=== PATIENT | male | born 1930 | race Caucasian/White ===

== ENCOUNTER 2016-11-26 14:45 | Inpatient (IN) ==
[2016-11-26] MEDS: NS 1,000 ML IV SCH ×2 (15:00→21:59)
[2016-11-26] MEDS ORDERED: PHYTONADIONE 5 MG/2.5 ML ORAL LIQUID PO ONE (15:57)
--- NOTE | 2016-11-26 16:06 | XRay Report ---
Indication: hypoxia PROCEDURE: XR chest 1V: Encounter: Initial Comparison: CT chest dated November 12, 2010 Findings: There is a nasogastric tube in place. I cannot definitely localize the tip on this exposure. Lungs are mildly hypoinflated. No pneumothorax or definite effusion. Heart size and mediastinal contours are stable. Prior CABG. Pulmonary vascularity appears prominent. Bilateral shoulder replacements. Impression: 1. I cannot localize the tip of the nasogastric tube on this exam. 2. Hypoinflation and mild pulmonary edema. .
[2016-11-26] MEDS ORDERED: PHYTONADIONE 10 MG/ML SQ ONE (16:08)
--- NOTE | 2016-11-26 16:14 | History & Physical Report ---
<Joy Mcdaniel V - Last Filed: 11/26/16 15:58> History of Present Illness Date: 11/26/16 Chief complaint: GI Bleeding HPI: Chester is a pleasant 86yr old male with acute GI Bleeding. He was seen last evening in [facility]'s ER and was thought to be dehydrated. His Hgb was 17 at that time and he was discharged home. This morning he got up use the restroom noted to have "diarrhea". He felt lightheaded and weak and ambulated outside in attempt to go to his car to present to the doctor, however, he "slumped down and fell ". This was witnessed by his neighbor, and he asked his neighbor to call EMS for transportation to the emergency room. He was evaluated again acutely at [facility] emergency room this morning. Laboratory studies were repeated. At this time, hemoglobin was found to be down at 14.4 with a white count of 25.7, hematocrit 42.4, platelet count 272, 81 segs with 6% bandemia. INR at that time his 2.88 as patient is chronically on warfarin. Needing these in 1.6, to prone and was negative, lipase 81, amylase 36. It was 3 panel is reviewed. Sodium is 138, potassium 4.3, BUN 44, creatinine 1.4. Sedimentation rate was found to be 7. Twelve lead EKG was obtained showing sinus rhythm with PVCs without other acute changes. A CT scan of the abdomen was obtained given his leukocytosis with diarrhea. He was found to have a distended abdomen with debris/food raising concern for gastric outlet obstruction or gastroparesis. He is also noted to have diverticulosis of the colon. An NG tube tube was placed to LIS. Patient was then assisted up to use the bathroom at which time he had a maroon stool. Given the concern for acute GI bleeding, accompanied with his chronic comorbidities and chronic anticoagulation, [facility] Hospitalists services were contacted and accepted patient for direct admission to the ICU as an inpatient under the care of Dr. Noble. It is expected that his stay will be greater than 2 overnights. He shouldn't on arrival to [facility]. He has ongoing drainage from NG tube that is melena in color. He also has a melena stool during examination. He does complain of feeling somewhat short of breath. He denies having any pain in his chest or stomach. Reports he has had loose stools diarrhea and has soreness to his rectum. Patient remembers the event this morning in which he "fell, stumbled". He denies hitting his head or having loss of consciousness. Did discuss events records and he does verbalize. He wishes to be a full code Review of Systems Comprehensive ROS: completed and no additional positive findings except those as stated - Constitutional Constitutional: Present: fatigue, weakness - Respiratory Respiratory: Present: dyspnea - Gastrointestinal Gastrointestinal: Present: diarrhea, melena PFSH Past medical history History of colon cancer, prostate cancer and liver cancer Coronary artery disease with SD in 1997 History pulmonary emboli, chronic anticoagulation- started in 2011 GERD with esophageal stricture Type II diabetes Hypertension Hypothyroidism BPH Surgical History: Transverse partial colectomy-2008 (Dr. Ortega). EGD with dilatation-2010 (Dr. Ortega ). Cholecystectomy-Dr. Del Castillo. Quadruple bypass- 1994. TURP- Dr Michael. Back surgery, Dr. Frank. Left shoulder replacement- 2008 (Dr. Garcia). Right shoulder replacement-2010 (Dr. Garcia). Appendectomy- 1962 Family History: Mother with history of malignant brain tumor Father history of SD at a young age Multiple siblings with coronary artery disease. He has 2 children, 1 child in his 40s from leukemia - Social History Smoking status: Never smoker Substance use type: does not use Alcohol intake frequency: does not drink Housing: house Current occupational status: retired Current residence: Apartment/Private Home Social history: Resides independently at home in [place], [place]. Primary care provider- Dr. Esequiel Calloway Engineering Geologist Dr. Jeffries Medications Home Medications Medication Instructions Recorded Confirmed Type Levothyroxine Sodium [Synthroid] 137 mcg PO DAILY #0 08/20/09 History Lisinopril 20 mg PO #0 08/20/09 History Omeprazole 20 mg PO DAILY #0 08/20/09 History Sucralfate 1 g PO QID #0 07/29/10 History hydroCHLOROthiazide 25 mg PO DAILY #0 07/30/10 History [Hydrochlorothiazide] Allergies Allergy/AdvReac Type Severity Reaction Status Date / Time No Known Allergies Allergy Mild Verified 06/19/08 15:48 Exam Telemetry Rhythm: Sinus Rhythm Telemetry Ectopy: Occasional PVC Height/Weight/BMI: Weight 84.1 kg - Constitutional Present: no acute distress, well nourished, well developed - Routine HEENT Exam Head: Present: normocephalic, atraumatic Eye: Present: EOMI, PERRL ENT: Present: mucous membranes moist, dentition normal - Routine Respiratory Exam Present: CTA bilaterally. Absent: wheezes - Routine Cardiovascular Exam Present: RRR, S1, S2, no murmur. Absent: murmur - Routine Abdominal Exam Present: soft, non distended, non tender. Absent: normoactive bowel sounds ( hypoactive bowel sounds), tenderness - Routine Rectal Exam Patient deferred: visual exam Visual: Present: black stool, bloody stool Digital: Present: blood Comments: Erythema and external soreness at rectal opening - Routine Extremities Exam Present: no edema, pallor - Routine Back/Spine/Pelvis Exam Back/Spine: Present: full ROM - Routine Skin Exam Present: intact, dry, warm - Routine Neurological Exam Present: alert, oriented X3, moving all extremities CN- 3-12 intact - Routine Psychiatric Exam Present: normal affect, normal thought process Results - Labs CBC & Chem 7: 11/26/16 15:35 Assessment and Plan (1) Acute GI bleeding Current visit: Yes Status: Acute (2) Chronic anticoagulation Current visit: Yes Status: Acute DVT Prophylaxis: SCD's GI Prophylaxis: Protonix Resuscitation Status: Full Code Assessment and Plan: Impression Acute GI bleed Chronic anticoagulation with elevated INR GERD GERD with esophageal stricture Type II diabetes Hypertension Hypothyroidism BPH History of colon cancer with metastases, prostate cancer Plan Admit patient. Inpatient status under the care of Dr. Noble to the ICU for acute GI bleed On admission obtain CBC, BMP, INR, PTT, type and screen. INR this morning was 2.5, INR on admission is 2.76. Will give Vitamin K SQ 5 mg now. Given active melena will initiate transfusion of FFP x [address]. [address] Noble Hgb last evening was 17. This morning was 14.[address] [facility]. On admission Hgb has decreased to 12.2. Type and screen, ordered. May need to consider blood transfusion. Will recheck HGB at 2200 and will continue serial H/H every 6 hours. Placed on Protonix Drip for GI protection Consultation placed to Dr. Holland for further surgical evaluation and recommendations. Monitor patient on cardiac telemetry for dysrhythmias NS at 100 ml/hr for ongoing hydration. Patient is currently NPO. Monitor Accu checks routinely given DM Will need to review home medications once reconciled. SCDs to bilateral lower ext for DVT prophylaxis Patient does request to be a full code and this order is written. Plan of care and orderes discussed with Dr Holland and Dr Noble Hospital Course Summary Disclaimer: The visit summary below is not to be considered part of the above Progress Note. Hospital Course: 11/26/16 - Initial admission Impression Acute GI bleed Chronic anticoagulation with elevated INR GERD GERD with esophageal stricture Type II diabetes Hypertension Hypothyroidism BPH History of colon cancer with metastases, prostate cancer Plan Admit patient. Inpatient status under the care of Dr. Noble to the ICU for acute GI bleed On admission obtain CBC, BMP, INR, PTT, type and screen. INR this morning was 2.5, INR on admission is 2.76. Will give Vitamin K SQ 5 mg now. Given active melena will initiate transfusion of FFP x [address] Noble Hgb last evening was 17. This morning was 14.[address] [facility]. On admission Hgb has decreased to 12.2. Type and screen, ordered. May need to consider blood transfusion. Will recheck HGB at 2200 and will continue serial H/H every 6 hours. Placed on Protonix Drip for GI protection Consultation placed to Dr. Holland for further surgical evaluation and recommendations. Monitor patient on cardiac telemetry for dysrhythmias NS at 100 ml/hr for ongoing hydration. Patient is currently NPO. Monitor Accu checks routinely given DM Will need to review home medications once reconciled. SCDs to bilateral lower ext for DVT prophylaxis Patient does request to be a full code and this order is written. Plan of care and orderes discussed with Dr Holland and Dr Noble <Marianna Nolbe - Last Filed: 11/26/16 18:27> History of Present Illness Date: 11/26/16 Exam Height/Weight/BMI: Weight 84.1 kg Results - Labs CBC & Chem 7: 11/26/16 15:35 11/26/16 15:35 Assessment and Plan (1) Acute GI bleeding Current visit: Yes Status: Acute (2) Chronic anticoagulation Current visit: Yes Status: Acute Assessment and Plan: I have independently evaluated and examined this patient. I reviewed the chart, the patient's history, and the CRINKLING MACHINE OPERATOR/PA's documented findings as above. We discussed and formulated the assessment and plan as above with additions as below: Mr. Marcelino presented to the emergency room at an outside hospital yesterday after several falls. In retrospect he reports that he had a black stool yesterday morning. He received IV fluids and was discharged home. This morning he had blurred vision, dizziness, difficulty walking, and a fall as previously noted. He additionally had one episode of emesis at home but did not recognize hematemesis. He subsequently presented to the emergency room were ultimately GI bleed was identified and he transferred to [facility]. The patient denies any symptoms suggestive of dyspepsia or reflux although EGD in December 2010 and prior EGDs demonstrated severe GERD, hiatal hernia and distal esophageal stricture requiring dilatation. Patient's colon cancer was identified in 2008 with subsequent recurrence in the right liver requiring hepatic resection in 2009 and omental resection in 2010 positive for poorly differentiated adenocarcinoma consistent with colon primary. A Port-A-Cath was placed for chemotherapy although patient reports that he never received chemotherapy. Addition to surgeries previously noted the patient has had partial right hepatic lobectomy in 2009 and an omental resection /abdominal wall resection in 2010 for recurrent colon cancer and Port-A-Cath placement in 2010; he's had multiple EGDs with esophageal dilatations. Please note home medications are pending-those listed above are from several years ago. On examination the patient was alert and cooperative. He is hard of hearing. sBP 110 Respirations are nonlabored with good airflow and clear breath sounds. Cardiac rhythm is regular. Abdomen is soft, nondistended, bowel sounds are diminished; there is minor tenderness to palpation in the lateral right mid abdomen without guarding. Labs as previously noted-INR 2.88 prior to transfer. Hemoglobin has dropped from 17.7 yesterday to most recent value of 12.2 with multiple stool since arrival. Protonix is been initiated, warfarin is being reversed with vitamin K and FFP. Will likely require diuresis in conjunction with FFP due to volume. Dr. Holland consulted and case discussed with him. Given uncertainty of past treatment for metastatic colon cancer will reassess CEA with morning labs. Chest x-ray on admission with minor increased vascular markings/early pulmonary edema Patient critically ill with ongoing active GI bleed; at high risk for complications. 35 minutes spent at the bedside with patient/family and reviewing data on the unit. Additional time spent off unit inpatient care. The patient's [id number]-Maria Del Carmen Reyes, phone #[phone]-is his DPOA. Hospital Course Summary Disclaimer: The visit summary below is not to be considered part of the above Progress Note.
[2016-11-26] MEDS: PANTOPRAZOLE IV 80 MG in NS 250ml 250 ML IV SCH (17:52)
[2016-11-26] MEDS ORDERED: FUROSEMIDE 20 MG/2 ML INJECTION IVP ONE (20:00)
[2016-11-26 21:48] VITALS: BMI 29.0
[2016-11-26] MEDS ORDERED: NS FLUSH BAG 500ml IV PRN (21:48)
[2016-11-26] MEDS: NS FLUSH BAG 500ml IV PRN (23:43)
[2016-11-27] MEDS: NS FLUSH BAG 500ml IV PRN ×2 (02:17→21:54)
[2016-11-27] MEDS: PANTOPRAZOLE IV 80 MG in NS 250ml 250 ML IV SCH (03:10)
[2016-11-27] MEDS ORDERED: BENZOCAINE 20% SPRAY 0.5 ML MM ONE (08:35)
[2016-11-27] MEDS ORDERED: LIDOCAINE VISCOUS 2% ORAL LIQUID 15ml PO ONE (08:40)
--- NOTE | 2016-11-27 09:11 | XRay Report ---
Indication: CHF/volume overload PROCEDURE: XR chest 1V: Encounter: Initial Comparison: November 26, 2016 Findings: Nasogastric tube is again seen and only partially visualized. Poststernotomy changes and prior CABG. Bilateral shoulder replacements. Lungs are mildly hypoinflated but grossly clear. No pneumothorax or pleural effusion. Heart size and mediastinal contours are stable. Pulmonary vascularity is slightly less congested. Impression: Improving pulmonary vascular congestion. .
--- NOTE | 2016-11-27 09:18 | Consultation ---
DATE OF CONSULTATION 11/26/2016 CONSULTING PHYSICIAN Anatoly Holland MD REQUESTING PHYSICIAN Dr. Noble REASON FOR CONSULTATION GI bleed. IMPRESSION 1. Acute GI bleed - likely upper GI bleed based on NG tube output and melanotic stools. 2. Chronic anticoagulation with Coumadin. 3. Personal history of pulmonary embolism. 4. Personal history of metastatic colon cancer. 5. Personal history of Moraes's esophagus with distal esophageal strictures status post multiple dilatations. 6. Gastroesophageal reflux disease. PLAN 1. I agree with following serial hemoglobins. 2. I do agree with reversal of his Coumadin given his drop in hemoglobin so far. 3. If he needs urgent intervention due to uncontrolled bleeding or hemodynamic instability, then I think that coiling with interventional radiology would be advantageous. 4. I am hopeful that as his INR is reversed his bleeding will stop and it will allow for more controlled endoscopy. Colonoscopy will have to be considered given his history of colon cancer. 5. I will follow along with you with regards to his GI bleeding. HISTORY OF PRESENT ILLNESS Geovany is an 86-year-old male with a history of metastatic transverse colon cancer as well as a history of pulmonary embolism. He is on chronic anticoagulation for his history of a PE. He was seen last evening in the emergency department in [facility]. His hemoglobin was 17. He was thought to be dehydrated and was dismissed home. This morning he had felt lightheaded and weak when he was walking outside to go to his car and head to his physician's office. The patient had a witnessed fall and so he was taken back to the emergency department by EMS. He had a hemoglobin that had decreased to 14.4. His INR was 2.88. He did reportedly have a CT scan of the abdomen. This had raised question of debris and food within the stomach concerning for gastric outlet obstruction or gastroparesis. He had had an NG tube placed. He did have a maroon stool. He was transferred to [facility] after given the choice of [facility] or [facility]. He continued to have dark NG output and began having multiple melanotic stools. The hospitalist consulted me and in the meantime have ordered vitamin K and FFP. He has been started on a Protonix drip. The patient denies any abdominal pain. He does have an extensive history of distal esophageal stricture requiring dilatations. Biopsies of his GE junction in 2010 had showed Moraes's esophagus. He is taking omeprazole and Carafate at home. PAST MEDICAL HISTORY 1. Metastatic colon cancer of the mid transverse colon - originally stage II when diagnosed in June of 2008. He developed metastases to the right liver status post laparoscopic resection on 06/22/2008 and a recurrence intraperitoneally to the omentum status post resection in August 2009. 2. Prostate cancer status post radiation therapy in 2001. 3. Coronary artery disease with myocardial infarction in 1997 status post CABG. 4. Pulmonary emboli - 2011. He was started on chronic anticoagulation at that point in time. 5. Gastroesophageal reflux disease. 6. Moraes's esophagus and distal esophageal stricture. 7. Hypertension. 8. Hypothyroidism. PAST SURGICAL HISTORY 1. Appendectomy - 1962. 2. Back surgery - [address] Frank. 3. CABG x 4 - 1994. 4. TURP by Dr. Michael. 5. Colonoscopy - 03/06/[address] Ortega. Colonoscopy was normal except for diverticulosis. 6. Cholecystectomy - 2005. 7. Colonoscopy - 06/20/[address] Ortega. Endoscopy revealed an obstructing lesion at the hepatic flexure. 8. Exploratory laparotomy with transverse colectomy - 06/22/[address] Ortega. 9. Colonoscopy - 07/06/[address] Ortega. Endoscopy revealed a stricture of the transverse colon anastomosis that was dilated. There was also extensive sigmoid diverticulosis. 10. Laparoscopic resection of liver metastases from the right lobe - [address] Ortega. 11. EGD with dilatation - 05/20/[address] Galdamez. 12. EGD with dilatation and esophageal biopsies - 06/06/[address] Galdamez. Pathology revealed Moraes's esophagus of the specimen. 13. EGD with dilatation - 07/01/[address] Ortega. 14. EGD with dilatation - 07/30/[address] Ortega. 15. Exploratory laparotomy with removal of colon cancer metastases to the omentum and excision of abdominal wall which was benign - 12/02/[address] Ortega. 16. Left subclavian Port-A-Cath placement - 12/02/[address] Ortega. 17. Right shoulder replacement - [address] Garcia. 18. Left shoulder replacement - [address] Garcia. 19. EGD with dilatation - 12/16/[address] Ortega. Endoscopy revealed extensive inflammation of the distal esophagus from 20-30 cm. 20. 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 Ortega. 21. Right ulnar nerve transposition. ALLERGIES No known drug allergies. MEDICATIONS The patient's home medications were reviewed. FAMILY HISTORY Mother - malignant brain tumor. Father - myocardial infarction at a young age. Multiple siblings - coronary artery disease. Sister - breast cancer. Two children with one son who of leukemia in his 40s. SOCIAL HISTORY The patient is a never smoker. He does not drink. He lives independently in [facility]. His primary care physician is Dr. Esequiel Calloway. REVIEW OF SYSTEMS 10-point review of systems was negative except for history of present illness and the following: GENERAL: He reports fatigue, sweats, and chills. HEENT: He is hard of hearing and uses hearing aids. NEUROLOGIC: He has numbness of the right hand and intermittent numbness of the left hand. HEMATOLOGIC: He is on Coumadin and has a history of PE. MUSCULOSKELETAL: He reports history of back pain and leg pain but is doing better with recent cortisone injections. GASTROINTESTINAL: He has had diarrhea and melanotic stools. PHYSICAL EXAMINATION VITAL SIGNS: Temperature 97.9. Pulse 83. Blood pressure 101/59. Respiratory rate 16. Oxygen saturation 100% on 3 liters nasal cannula. GENERAL: The patient is awake and alert. He is lying in bed in the intensive care unit in no acute distress. HEENT: Sclerae clear. Extraocular muscles intact. NECK: Supple with a midline trachea. No lymphadenopathy or thyromegaly are noted. HEART: Regular rate and rhythm. LUNGS: Clear to auscultation bilaterally. ABDOMEN: Soft, nontender, nondistended. No masses, fluid, organomegaly, guarding or rebound are noted. His NG output has dark maroon output. EXTREMITIES: No clubbing, cyanosis or edema. NEURO: Cranial nerves II-XII are grossly intact. PSYCHIATRIC: Normal mood and affect. LABORATORY DATA Hemoglobin 12.2, white blood cell count 17.8, BUN 52, creatinine 1.1, INR 2.76 at [facility]. PATIENT EDUCATION I did explain the clinical situation to Geovany and discussed the possible need for future endoscopy versus transfer to interventional radiology in [facility], all depending on his clinical status and INR trend along with hemoglobin trend. He was comfortable with the plan and desired to stay in [facility] it at all possible. MTDD
--- NOTE | 2016-11-27 10:19 | Progress Note ---
Subjective: Patient c/o dry mouth and wants something to drink this am. Multiple maroon stools overnight (about 8) and 3 so far this am-last stool small compared to initially 2 large maroon stools. Bloody NG drainage ongoing but relatively small volume relative to stool volume. Pt denies indigestion, heartburn, abd pain, N/V overnight. Denies dyspnea or CP. No generalized pain or dizziness. Objective Vital signs: Temperature 97.9 F 11/27/16 07:15 Pulse Rate 84 11/27/16 09:30 Respiratory Rate 27 H 11/27/16 09:30 Blood Pressure 126/85 11/27/16 09:30 Pulse Oximetry 98 11/27/16 09:30 Oxygen Delivery Method Nasal Cannula Oxygen Flow Rate 1 NAD, Ox3, some repetition and mild confusion, pleasant conjunctiva clear, PER, sclera anicteric, NG present resp non-labored, good airflow, breath sounds clear anteriorly/lat. RRR, S1S2 Abd soft, non-tender, non-distended, BS not noted Ext without edema Sensation intact x 4 ext, desktop publishing operator = 4/5, DF/PF intact Height/Weight/BMI: Height 1.7 m Weight 84.5 kg Body Mass Index 29.0 Results - Labs CBC & Chem 7: 11/27/16 13:10 11/27/16 03:49 Labs: Hemoglobin since arrival: 12.2-9.3-8.1-7.3 INR 1.69 this morning, repeated 1.77 at 1310 Assessment and Plan (1) Acute GI bleeding Current visit: Yes Status: Acute (2) Acute blood loss anemia Current visit: Yes Status: Acute DVT Prophylaxis: SCD's GI Prophylaxis: Protonix Resuscitation Status: Full Code Assessment and Plan: Impression: Acute upper GI bleed Acute blood loss anemia Coagulopathy due to warfarin GERD with hx esophageal stricture Type II diabetes Hypertension Hypothyroidism BPH History of colon cancer with metastases, prostate cancer Plan: Continued active GI bleed, BP down briefly last night. Hbg continues to drop, 1 unit overnight and 2nd unint PRBs being given currently. Additional blood being given this afternoon due to ongoing blood loss and dropping hemoglobin. Continue q6hr H/H; convert Protonix to 40 mg bid IV from gtt. INR remained modestly elevated this am after 10 mg Vit. K and 4 units FFP; being reassessed after current unit of blood completed. Additional vitamin K and FFP being given this afternoon. d/w Dr. Holland-EDG when INR permits, <1.5. BUN elevated, c/w GI bleed. CEA 1.0-hx metastatic colon ca. Blood sugars minimally elevated. Patient critically ill with ongoing active GI bleed; at high risk for complications. 40 minutes ([id number]; [id number]) spent at the bedside with patient/RN and reviewing data on the unit. Additional time spent off unit inpatient care and multiple phone calls with staff. The patient's txobpszo-gj-osk-Maria Del Carmen Reyes, phone #[phone]-is his DPOA. Sepsis Assessment - Evaluation Sepsis screening result: No Definite Risk Hospital Course Summary Disclaimer: The visit summary below is not to be considered part of the above Progress Note. Hospital Course: 11/26/16 Admit patient. Inpatient status under the care of Dr. Noble to the ICU for acute GI bleed On admission obtain CBC, BMP, INR, PTT, type and screen. INR this morning was 2.5, INR on admission is 2.76. Will give Vitamin K SQ 5 mg now. Given active melena will initiate transfusion of FFP x 4 units. Hgb last evening was 17. This morning was 14.4 at [facility]. On admission Hgb has decreased to 12.2. Type and screen, ordered. May need to consider blood transfusion. Will recheck HGB at 2200 and will continue serial H/H every 6 hours. Placed on Protonix Drip for GI protection Consultation placed to Dr. Holland for further surgical evaluation and recommendations. 11/27/16 16:10 Continued active GI bleed, BP down briefly last night. Hbg continues to drop, 1 unit overnight and 2nd unint PRBs being given currently. Additional blood being given this afternoon due to ongoing blood loss and dropping hemoglobin. Continue q6hr H/H; convert Protonix to 40 mg bid IV from gtt. INR remained modestly elevated this am after 10 mg Vit. K and 4 units FFP; being reassesed after current unit of blood completed. Additional vitamin K and FFP being given this afternoon. d/w Dr. Holland-EDG when INR permits, <1.5. BUN elevated, c/w GI bleed. CEA 1.0-hx metastatic colon ca.
[2016-11-27] MEDS: PANTOPRAZOLE 40 MG INJECTION IVP SCH ×2 (10:25→21:56)
[2016-11-27] MEDS ORDERED: NS FLUSH BAG 500ml IV PRN ×3 (13:34→13:40)
[2016-11-27] MEDS ORDERED: PHYTONADIONE 10 MG/ML SQ ONE (13:41)
--- NOTE | 2016-11-27 17:59 | Anesthesia Preoperative Report ---
Anesthesia Preoperative Record - Date and Time Date: 11/27/16 Preoperative Diagnosis: GI Bleed Proposed Procedure: EGD NPO Since Date: 11/27/16 NPO Since Time: 00:00 Allergies/Adverse Reactions: Allergies Allergy/AdvReac Type Severity Reaction Status Date / Time No Known Allergies Allergy Mild Verified 06/19/08 15:48 - Vital Signs Vital Signs: Temperature 97.9 F 11/27/16 15:00 Pulse Rate 91 11/27/16 16:00 Respiratory Rate 19 11/27/16 15:15 Blood Pressure 126/60 11/27/16 15:15 Pulse Oximetry 100 11/27/16 15:15 Oxygen Delivery Method Nasal Cannula Oxygen Flow Rate 1 Height and Weight: Height 5 ft 7 in Weight 84.5 kg Body Mass Index 29.0 - Medications Inpatient Medications: Current Medications Sodium Chloride (Normal Saline) 1,000 mls @ 50 mls/hr IV .Q20H [facility] Last Infusion: 11/27/16 11:00 Dose: 50 mls/hr Pantoprazole Sodium (Protonix Iv) 40 mg IVP BID [facility] Last Admin: 11/27/16 10:25 Dose: Not Given Sodium Chloride (Normal Saline) 500 ml IV PRN PRN Last Admin: 11/27/16 02:17 Dose: 500 ml Sodium Chloride (Normal Saline) 500 ml IV PRN PRN Sodium Chloride (Normal Saline) 500 ml IV PRN PRN Sodium Chloride (Normal Saline) 500 ml IV PRN PRN Sodium Chloride (Normal Saline) 500 ml IV PRN PRN Home Medications: Home Medications Medication Instructions Recorded Confirmed Type Omeprazole 20 mg PO DAILY #0 08/20/09 11/27/16 History Aspirin [Aspirin EC] 81 mg PO DAILY 11/27/16 11/27/16 History Citalopram [Celexa] 1 tab PO DAILY 11/27/16 11/27/16 History Colchicine [Colcrys] 0.6 mg PO PRN PRN 11/27/16 11/27/16 History HydroCHLOROthiazide [Microzide] 1 cap PO WB 11/27/16 11/27/16 History Levothyroxine Tab [Synthroid] 112 mcg PO ACB 11/27/16 11/27/16 History Lisinopril [Prinivil] 5 mg PO DAILY 11/27/16 11/27/16 History Nitroglycerin [Nitrostat] 0.4 mg SL PRN PRN 11/27/16 11/27/16 History Potassium Chloride [Micro-K] 10 meq PO WB 11/27/16 11/27/16 History Tamsulosin [Flomax] 0.4 mg PO HS 11/27/16 11/27/16 History Warfarin Sodium [Coumadin] 5 mg PO DAILY 11/27/16 11/27/16 History Is Patient on Beta Ekta?: No - Medical History Respiratory: DENIES: Asthma, Bronchitis, Chronic Obstructive Pulmonary Disease (COPD), Dyspnea, Orthopnea, Pulmonary Embolism, Pneumonia, Upper Respiratory Infection, Pulmonary Edema, Sleep Apnea, Tuberculosis, Other Cardiovascular: Reports: Coronary Artery Disease (CABG), Hypertension Gastrointestional: Reports: Gastroesophageal Reflux Disease Neuro/Musculoskeletal: Denies: HX.MS.OSAR, Back Problems, Cerebrovascular Accident, Depression, Headaches, Loss of Consciousness, Muscle Weakness, Neuromuscular Disorder, Paralysis, Paresthesia, Syncope, Seizures, Other Renal/Endocrine: DENIES: Diabetes Mellitus Type 1, Diabetes Mellitus Type 2, Renal Failure, Dialysis, Thyroid Disease, Weight Loss, Weight Gain, Other Other History: Reports: Cancer (Prostate\) - Surgical History Cardiac Surgeries/Treatments: Reports: Coronary Artery Bypass Graft GI Surgery/Treatments: Reports: Appendectomy, Cholecystectomy, Colon Resection ( COLON CA), Other (GI BLEED) Musculoskeletal Surgery/Tx: Comment Only: Other (CORTISONE SHOT IN KNEES) - Social History Smoking Status: Former smoker Hx Chewing Tobacco Use: No Second Hand Exposure: No Substance Use Type: does not use Alcohol Intake Frequency: does not drink - Pertinent Findings Laboratory: CBC and BMP 11/27/16 15:51 11/27/16 03:49 BMP 11/27/16 03:49 Sodium 144 Potassium 4.4 Chloride 109 H Carbon Dioxide 25 BUN 67.0 H* Creatinine 1.2 Glucose 149 H Calcium 8.6 Liver Function 11/27/16 Range/Units 03:49 Total Bilirubin 0.40 (0.20-1.30) MG/DL AST 15 L (17-59) U/L ALT 29 (21-72) U/L Alkaline Phosphatase 34 L (38-126) U/L Albumin 2.9 L (3.5-5.0) G/DL EKG Rhythm: Normal Sinus Rhythm - Physical Exam Respiratory Exam: Present: lungs clear, bilateral breath sounds equal Cardiovascular Exam: Present: regular rate and rhythm, no murmur - Airway Assessment Mallampati Score: II TMD: 3 Fingerbreadths Neck Extension: good Teeth: upper dentures, lower dentures Overall Assessment: no airway concerns - ASA ASA Score: 3, E - Plan Anesthesia: MAC - Discussion Discussion: Discussed risks/options/alternatives of anesthesia and questions answered. Patient consents. Nursing pain assessment noted. Attestation Statement: Prior to the delivery of any anesthetic medication, I examined the patient, developed the plan, obtained the patient's consent and discussed the risk and benefits of the procedure with the patient/guardian. - Additional Information Seen by Anesthesia: Yes
[2016-11-27] MEDS ORDERED: KETAMINE 500 MG/10 ML INJECTION ONE (20:13)
[2016-11-27] MEDS ORDERED: BENZOCAINE 20% SPRAY 0.5 ML ONE (20:13)
[2016-11-27] MEDS ORDERED: LIDOCAINE VISCOUS 2% ORAL LIQUID 15ml ONE (20:13)
[2016-11-27] MEDS ORDERED: MIDAZOLAM 2mg/2ml INJECTION ONE (20:13)
[2016-11-27] MEDS ORDERED: ALFENTANIL 1000mcg/2ml INJECTION IVP ONE (20:13)
[2016-11-27] MEDS: SALINE FLUSH 10ml SYRINGE IV PRN (22:54)
[2016-11-27] MEDS: NS 1,000 ML IV SCH (22:54)
[2016-11-28] MEDS: HALOPERIDOL 5 MG/ML INJECTION IVP PRN ×2 (00:03→22:47)
[2016-11-28] MEDS ORDERED: ACETAMINOPHEN 650 MG SUPPOSITORY PR PRN (01:35)
[2016-11-28] MEDS: NS 1,000 ML IV SCH ×5 (05:32→20:58)
[2016-11-28] MEDS: PANTOPRAZOLE 40 MG INJECTION IVP SCH ×2 (09:44→20:01)
--- NOTE | 2016-11-28 09:53 | Progress Note ---
DATE OF VISIT 11/27/2016 REASON FOR VISIT Follow GI bleed. SUBJECTIVE Geovany still denies any abdominal pain. He is hoping he can eat. He has continued to have multiple maroon stools and bloody NG output. OBJECTIVE VITAL SIGNS: Afebrile with stable vitals on 1 liter nasal cannula. HEART: Regular rate and rhythm. LUNGS: Clear to auscultation bilaterally. ABDOMEN: Soft, nontender, nondistended. GENERAL: The patient is awake, alert, in no acute distress. LABORATORY DATA Most recent hemoglobin had dropped to 7.3, down from 8.1 this morning and 12.2 on admission. INR had decreased to 1.69 this morning but has increased to 1.77 this afternoon. IMPRESSION 1. Acute upper GI bleed. 2. Chronic anticoagulation with Coumadin - continued anticoagulation effect despite reversal with vitamin K and FFP. 3. Acute blood loss anemia secondary to GI bleed. 4. Personal history of pulmonary embolism. 5. Personal history of Moraes's esophagus and distal esophageal strictures. 6. Gastroesophageal reflux disease. PLAN 1. Geovany will continue to need reversal of his Coumadin to get his INR below 1.5 to allow a procedure without increased bleeding risk. 2. I have scheduled a slot for him tomorrow morning in the operating room since I doubt that reversal will be completed by the end of the day today. Hopefully, when his anticoagulation is reversed, his bleeding will decrease. 3. Continue to transfuse as necessary. 4. NPO at midnight. PATIENT EDUCATION The details, risks and benefits of EGD were discussed with the patient. The discussion included, but was not limited to, bleeding, perforation, increased risk of bleeding with instrumentation, possible thermal injury resulting in perforation, aspiration, and complications of anesthesia. He voiced understanding and did wish to proceed with EGD as soon as INR was reasonable. MTDD
--- NOTE | 2016-11-28 10:28 | Progress Note ---
Subjective: Mr. Marcelino complains of being thirsty and asks for something to drink. He had questions about whether the bleeding was controlled and endoscopy last night. Nursing reports confusion requiring administration of Haldol overnight and chills lasting about 30 minutes as the final blood transfusion was completed. The patient has had several additional dark maroon stools since endoscopy but stool volume appears to be decreasing per nursing report. Patient denied dyspnea , chest pain, palpitations, nausea, abdominal pain, or heartburn. He believes he was able to get some sleep overnight and anticipate we aware of chilling overnight. His voiding without difficulty. Objective Vital signs: Temperature 98.4 F 11/28/16 04:01 Pulse Rate 60 11/28/16 08:00 Respiratory Rate 29 H 11/28/16 06:16 Blood Pressure 119/74 11/28/16 06:16 Pulse Oximetry 96 11/28/16 06:16 Oxygen Delivery Method Nasal Cannula Oxygen Flow Rate 2 EXAM General-patient is awake and slightly confused, he perseverates slightly; voice is raspy HEENT-pupils are round and symmetric, conjunctiva clear, EOMI; oral membranes dry Lungs-respirations nonlabored, good airflow, breath sounds clear anteriorly Cardiac-regular rhythm, S1-S2; sinus rhythm on telemetry Abd-soft, nontender, nondistended, diminished bowel sounds Ext-without edema Neuro-MAEW, sensation intact 4 extremities Psych-briefly tearful, slightly confused - Rhythm: Normal Sinus Rhythm Height/Weight/BMI: Height 1.7 m Weight 84.3 kg Body Mass Index 29.0 Results - Labs CBC & Chem 7: 11/28/16 06:52 11/28/16 06:52 Labs: Hemoglobin 5.7 at 7 PM yesterday evening; differential this morning segs 71, bands 9, lymphocytes 11, monocytes 8, metamyelocyte 1 Accu-Cheks 180-219 past 24 hours Liver enzymes unremarkable, phosphorus 2.0 Assessment and Plan (1) Acute GI bleeding Current visit: Yes Status: Acute (2) Acute blood loss anemia Current visit: Yes Status: Acute DVT Prophylaxis: SCD's GI Prophylaxis: Protonix Resuscitation Status: Full Code Assessment and Plan: Impression: Acute upper GI bleed Acute blood loss anemia Coagulopathy due to warfarin GERD with hx esophageal stricture Type II diabetes Hypertension Hypothyroidism BPH History of colon cancer with metastases, prostate cancer Plan: Upper GI completed yesterday evening by Dr. Holland identifying active arterial bleed at the distal esophagus. Irregular lesion present associated with bleeding site and some tissue was obtained for pathology. Multiple sites treated with cauterization, epinephrine injection, and clipped to obtain hemostasis. Patient briefly developed narrow complex tachycardia following epinephrine injection requiring administration of esmolol for rate control. Sinus rhythm this morning, BP 119/74-167/71 overnight. Has had 6 units of packed red blood cells today, continue to monitor hemoglobin. Platelet count down following active bleed-monitor and reassess later this afternoon. Does not require intervention at present. Previously on warfarin due to history PE, reversed with 6 units FFP and 15 mg vitamin K. SCDs for DVT prophylaxis. BUN elevated, c/w GI bleed. CEA 1.0-hx metastatic colon ca; Dr. Holland has confirmed from office records that patient did not receive chemotherapy after second recurrence. Blood sugars minimally elevated, corrective scale insulin available. Patient critically ill with life-threatening GI bleed; at high risk for complications. 46 minutes ([id number]) spent at the bedside with patient/RN and reviewing data on the unit. Additional time spent off unit inpatient care and multiple phone calls with staff. Emotionally labile; will attempt to get out of bed today blood pressure permitting. The patient's djoahprf-[id number]-Maria Del Carmen Reyes, phone #[phone]-is his DPOA. Sepsis Assessment - Evaluation Sepsis screening result: No Definite Risk Hospital Course Summary Disclaimer: The visit summary below is not to be considered part of the above Progress Note. Hospital Course: 11/26/16 Admit patient. Inpatient status under the care of Dr. Noble to the ICU for acute GI bleed On admission obtain CBC, BMP, INR, PTT, type and screen. INR this morning was 2.5, INR on admission is 2.76. Will give Vitamin K SQ 5 mg now. Given active melena will initiate transfusion of FFP x 4 units. Hgb last evening was 17. This morning was 14.4 at [facility]. On admission Hgb has decreased to 12.2. Type and screen, ordered. May need to consider blood transfusion. Will recheck HGB at 2200 and will continue serial H/H every 6 hours. Placed on Protonix Drip for GI protection Consultation placed to Dr. Holland for further surgical evaluation and recommendations. 11/27/16 16:10 Continued active GI bleed, BP down briefly last night. Hbg continues to drop, 1 unit overnight and 2nd unint PRBs being given currently. Additional blood being given this afternoon due to ongoing blood loss and dropping hemoglobin. Continue q6hr H/H; convert Protonix to 40 mg bid IV from gtt. INR remained modestly elevated this am after 10 mg Vit. K and 4 units FFP; being reassesed after current unit of blood completed. Additional vitamin K and FFP being given this afternoon. d/w Dr. Holland-EDG when INR permits, <1.5. BUN elevated, c/w GI bleed. CEA 1.0-hx metastatic colon ca. 11/28/16 10:42 Upper GI completed yesterday evening by Dr. Holland identifying active arterial bleed at the distal esophagus. Irregular lesion present associated with bleeding site and some tissue was obtained for pathology. Multiple sites treated with cauterization, epinephrine injection, and clipped to obtain hemostasis. Patient briefly developed narrow complex tachycardia following epinephrine injection requiring administration of esmolol for rate control. Sinus rhythm this morning, BP 119/74-167/71 overnight. Has had 6 units of packed red blood cells today, continue to monitor hemoglobin.
--- NOTE | 2016-11-28 10:46 | Operative Note ---
DATE OF OPERATION 11/27/2016 SURGEON Anatoly Holland MD DYE BOX OPERATOR Gonzalo Palacios MD PREOPERATIVE DIAGNOSES 1. Acute GI bleed. 2. Gastroesophageal reflux disease. 3. Acute blood loss anemia. POSTOPERATIVE DIAGNOSES 1. Tear of the distal esophagus of uncertain etiology with active arterial hemorrhage. 2. Upper GI bleed secondary to esophageal hemorrhage. 3. Gastroesophageal reflux disease. 4. Acute blood loss anemia. PROCEDURE 1. Esophagogastroduodenoscopy with biopsy of distal esophagus. 2. Endoscopic epinephrine injection at the distal esophagus for control of hemorrhage. 3. Bipolar Gold Probe cauterization at the distal esophagus for control of hemorrhage. 6. Endoscopic clip placement at the distal esophagus x 3 for control of hemorrhage. ANESTHESIA MAC ASA CLASS 3E INDICATIONS The patient is an 86-year-old male who had been admitted for GI bleed. He had had an elevated INR due to his chronic anticoagulation with Coumadin. His Coumadin was reversed and he was being transfused due to dropping hemoglobin. This evening his INR was finally below 1.5 with ongoing FFP transfusion. Hemoglobin had dropped to the level of 5.8 and since his INR was only 1.29 it was felt that intervention may be successful in control of hemorrhage. FINDINGS There was what appeared to be a linear tear along the distal esophagus just proximal to the GE junction. There was no evidence of mass in the area or other significant findings but within the tear there was arterial hemorrhage. There was a large amount of old clot contained within the esophagus that was adherent to the NG tube. NG tube was removed. The stomach and duodenum were normal. Epinephrine injection slowed the hemorrhage as did bipolar cautery, but complete control of the hemorrhage was not achieved until endoscopic clips were placed over the area of the linear tear of the distal esophagus. DESCRIPTION OF PROCEDURE After informed consent was obtained the patient was given IV sedation in the intensive care unit by the anesthesia team. He had received topical anesthesia to the oropharynx. A bite block was inserted followed by an Olympus video gastroscope. The gastroscope was advanced down into the esophagus where a large amount of clot was noted. The NG tube was removed given the adherent clot since it was blocking visualization. The scope was advanced down to the distal esophagus and the hemorrhage was noted. The scope was advanced into the stomach and duodenum quickly. After reaching the second portion of the duodenum , the scope was slowly withdrawn to examine the mucosa circumferentially. The duodenum was normal including the duodenal bulb. The distal stomach was normal. The scope was retroflexed to examine the cardiac and fundic portions of the stomach. There was some pooled blood in the fundus but the remainder of the stomach was inspected. The scope was returned to a neutral position and was advanced into the distal esophagus. There was still some hemorrhage from the area, so 9 ml of 1:10,000 epinephrine were injected circumferentially. This did slow of the hemorrhage significantly to allow visualization of the linear tear. The patient did have some tachycardia and hypertension from this which was treated by the anesthesia team. The Gold Probe bipolar cautery tip was advanced through the scope and was placed on the areas of hemorrhage. Attempts were made to hold pressure and cauterize the bleeding; however, with respiratory motion, the ability to hold good pressure and maintain position of the cautery probe was difficult. Given the difficulty with control of hemorrhage, this option was abandoned and an endoscopic clip was advanced and used to control the distal tear where the most prominent arterial bleeding was noted. There was still concern for rebleeding, so the remainder of the tear was controlled with two additional clips. Dr. Palacios came in to assist with placement of the two more difficult to place proximal clips since they were in close proximity to the original clip. His assistance allowed for appropriate clip placement. A second clip placed did tunnel under the mucosa proximally and this was removed from the mucosa with a closed biopsy forceps to pull the mucosa off of the tip of the clip. The third clip was used to control hemorrhage from this location and it was also felt that this would potentially decrease blood flow in the area since it was just proximal to the area of the tear with arterial bleeding. When the third clip was successfully deployed, the area was watched and hemostasis was assured. The scope was not re-advanced to avoid disruption of the clips. It was withdrawn, examining the mucosa of the esophagus again circumferentially. After epinephrine injection and initial cauterization, there was some loose tissue over the top of the tear which was simply grasped with biopsy forceps and withdrawn at the end of the scope to keep the architecture intact. This tissue was sent to pathology. The patient remained in the CCU in his preprocedure state. RECOMMENDATIONS 1. Await pathology to determine if any etiology for his tear can be discovered with pathologic analysis. 2. Continue to monitor hemoglobin trend. 3. Transfuse another unit of packed red blood cells currently prior to his next hemoglobin check. 4. If he decompensates or has evidence of rebleeding with hematemesis, then I think he would need transfer to [facility] for angiogram or thoracic surgery for control of the bleeding from the distal esophagus. ABHISHEKD
[2016-11-28] MEDS: INSULIN ASPART 100unit/ml INJECTION SQ PRN (20:01)
[2016-11-28] MEDS: SALINE FLUSH 10ml SYRINGE IV PRN (20:01)
[2016-11-29] MEDS ORDERED: HALOPERIDOL 5 MG/ML INJECTION IVP ONE (02:10)
[2016-11-29] MEDS: HALOPERIDOL 5 MG/ML INJECTION IVP PRN (07:20)
[2016-11-29] MEDS ORDERED: FUROSEMIDE 20 MG/2 ML INJECTION IVP ONE (09:15)
[2016-11-29] MEDS: PANTOPRAZOLE 40 MG INJECTION IVP SCH (09:52)
--- NOTE | 2016-11-29 10:07 | Progress Note ---
DATE OF VISIT 11/28/2016 REASON FOR VISIT Follow-up upper GI bleed status post EGD. SUBJECTIVE Geovany is doing well today. He is wondering if he can eat. He denies any abdominal pain. He has tolerated some minimal clear liquids so far. OBJECTIVE VITAL SIGNS: Afebrile with stable vitals. GENERAL: The patient is awake and alert, in no acute distress. He is seated in the chair. ABDOMEN: Soft, nontender, nondistended. LABORATORY DATA Hemoglobin is 10.6 currently. He was 11.0 this morning. Platelet count is 92, 000. IMPRESSION 1. Tear of the distal esophagus of uncertain etiology - pathology pending. 2. Upper GI bleed with arterial hemorrhage - now resolved after endoscopic management. 3. Acute blood loss anemia - stable after endoscopic control of upper GI bleed. PLAN 1. Advance to clear liquid diet today. 2. If hemoglobin is stable tomorrow then I think he could be advanced to a full liquid diet. I would like to leave him on a full liquid diet for at least three weeks to allow healing of the esophageal tear before resuming solid food. MTDD
[2016-11-29] MEDS: NS 1,000 ML IV SCH (10:27)
--- NOTE | 2016-11-29 17:23 | Progress Note ---
Subjective: Mr. Marcelino reported that he was feeling fairly well today. Nursing indicated that he was able to eat his lunch tray well and tolerated the full liquid diet without difficulty. He has had one stool today with mixture of liquid stool and some residual maroon old blood by nursing report. He denies nausea, abdominal pain, or heartburn. He denied dyspnea or chest pain but indicated he's had a little bit of a cough today without sputum production he denied lightheadedness. Overnight he became more confused and belligerent requiring administration of Haldol 3x. Confusion has cleared during the day and he apologized to nursing this afternoon for earlier behavior. Objective Vital signs: Temperature 97.4 F 11/29/16 07:30 Pulse Rate 78 11/29/16 16:01 Respiratory Rate 26 H 11/29/16 16:01 Blood Pressure 139/62 11/29/16 16:01 Pulse Oximetry 100 11/29/16 16:01 Oxygen Delivery Method Room Air EXAM General-NAD, alert HEENT-conjunctiva clear, conjugate gaze, oropharynx clear, neck supple Lungs-respirations nonlabored, diminished inspiratory effort, breath sounds clear anteriorly/laterally Cardiac-regular rhythm with occasional ectopic beats, S1 and S2 Abd-soft, nontender nondistended, bowel sounds present although diminished Ext-trace edema bilateral lower extremities Neuro-moving all extremities well Psych-calm, cooperative - Rhythm: Normal Sinus Rhythm Height/Weight/BMI: Height 1.7 m Weight 84.3 kg Body Mass Index 29.0 Results - Labs CBC & Chem 7: 11/29/16 06:28 11/29/16 06:28 Labs: Last 3 hemoglobin 11.0-10.6-9.0 INR 1.45 Magnesium 2.2, phosphorus 2.4, albumin 2.9 Accu-Cheks [id number] - Imaging and Cardiology Chest x-ray Status: image reviewed by me (bilateral shoulder arthroplasties, increased vascular markings bilaterally consistent with CHF) Assessment and Plan (1) Acute GI bleeding Current visit: Yes Status: Acute (2) Acute blood loss anemia Current visit: Yes Status: Acute DVT Prophylaxis: SCD's GI Prophylaxis: Protonix Resuscitation Status: Full Code Assessment and Plan: Impression: Acute upper GI bleed Distal esophageal tear with arterial bleeding; EGD 11/27/16 Acute blood loss anemia Coagulopathy due to warfarin Delirium GERD with hx esophageal stricture Type II diabetes Hypertension Hypothyroidism BPH History of colon cancer with metastases, prostate cancer; CEA 1.0 on 11/27 Plan: Hemoglobin drifting down slowly, continue to monitor. Hemodynamically stable. Full liquid diet with improved intake at lunch, will continue with nutritional supplements. GI bleed required 6 units of PRBCs to date. Currently no indication of ongoing blood loss. Platelet count down following active bleed. Does not require intervention. Previously on warfarin due to history PE, reversed with 6 units FFP and 15 mg vitamin K. SCDs for DVT prophylaxis. Warfarin remains on hold, do not anticipate resuming in the immediate future. Sinus rhythm this morning with frequent PVCs and occasional APCs-electrolytes unremarkable. BUN normalizing after elevation prior days c/w GI bleed. CEA 1.0-hx metastatic colon ca; Dr. Holland has confirmed from office records that patient did not receive chemotherapy after second recurrence. Blood sugars minimally elevated, corrective scale insulin available. Increase nocturnal confusion/delirium. Has worsened progressively the last 3 nights consistent with ICU psychosis. Suspect mild underlying dementia is present. Transfer out of the ICU, add low-dose Zyprexa at bedtime short term. Resume oral levofloxacin and Flomax. Continue PT/OT. Plans discussed with Dr. Holland, chest x-ray reviewed with myself; supplemental history provided by nursing. Laboratory data reviewed. The patient's purytebt-cj-dpt-Maria Del Carmen Reyes, phone #[phone]-is his DPOA. Sepsis Assessment - Evaluation Sepsis screening result: No Definite Risk Hospital Course Summary Disclaimer: The visit summary below is not to be considered part of the above Progress Note. Hospital Course: 11/26/16 Admit patient. Inpatient status under the care of Dr. Noble to the ICU for acute GI bleed On admission obtain CBC, BMP, INR, PTT, type and screen. INR this morning was 2.5, INR on admission is 2.76. Will give Vitamin K SQ 5 mg now. Given active melena will initiate transfusion of FFP x 4 units. Hgb last evening was 17. This morning was 14.4 at [facility]. On admission Hgb has decreased to 12.2. Type and screen, ordered. May need to consider blood transfusion. Will recheck HGB at 2200 and will continue serial H/H every 6 hours. Placed on Protonix Drip for GI protection Consultation placed to Dr. Holland for further surgical evaluation and recommendations. 11/27/16 16:10 Continued active GI bleed, BP down briefly last night. Hbg continues to drop, 1 unit overnight and 2nd unint PRBs being given currently. Additional blood being given this afternoon due to ongoing blood loss and dropping hemoglobin. Continue q6hr H/H; convert Protonix to 40 mg bid IV from gtt. INR remained modestly elevated this am after 10 mg Vit. K and 4 units FFP; being reassesed after current unit of blood completed. Additional vitamin K and FFP being given this afternoon. d/w Dr. Holland-EDG when INR permits, <1.5. BUN elevated, c/w GI bleed. CEA 1.0-hx metastatic colon ca. 11/28/16 10:42 Upper GI completed yesterday evening by Dr. Holland identifying active arterial bleed at the distal esophagus. Irregular lesion present associated with bleeding site and some tissue was obtained for pathology. Multiple sites treated with cauterization, epinephrine injection, and clipped to obtain hemostasis. Patient briefly developed narrow complex tachycardia following epinephrine injection requiring administration of esmolol for rate control. Sinus rhythm this morning, BP 119/74-167/71 overnight. Has had 6 units of packed red blood cells today, continue to monitor hemoglobin. 11/29/16 17:43 Hemoglobin drifting down slowly, continue to monitor. Hemodynamically stable. Full liquid diet with improved intake at lunch, will continue with nutritional supplements. GI bleed required 6 units of PRBCs to date. Currently no indication of ongoing blood loss. Platelet count down following active bleed. Does not require intervention. Previously on warfarin due to history PE, reversed with 6 units FFP and 15 mg vitamin K. SCDs for DVT prophylaxis. Warfarin remains on hold, do not anticipate resuming in the immediate future. Sinus rhythm this morning with frequent PVCs and occasional APCs-electrolytes unremarkable. BUN normalizing after elevation prior days c/w GI bleed. CEA 1.0-hx metastatic colon ca; Dr. Holland has confirmed from office records that patient did not receive chemotherapy after second recurrence. Blood sugars minimally elevated, corrective scale insulin available. Increase nocturnal confusion/delirium. Has worsened progressively the last 3 nights consistent with ICU psychosis. Suspect mild underlying dementia is present. Transfer out of the ICU, add low-dose Zyprexa at bedtime short term.
[2016-11-29] MEDS ORDERED: ACETAMINOPHEN 325 MG TABLET PO PRN (18:19)
[2016-11-29] MEDS: OLANZapine 2.5 MG TABLET PO SCH ×2 (19:25→21:51)
[2016-11-29] MEDS: TAMSULOSIN 0.4 MG CAPSULE PO SCH (21:51)
[2016-11-30] MEDS: NS 1,000 ML IV SCH ×2 (01:08→15:04)
[2016-11-30] MEDS: LEVOTHYROXINE 112 MCG TABLET PO SCH (06:15)
--- NOTE | 2016-11-30 09:14 | XRay Report ---
Indication: leukocytosis, hypoxia PROCEDURE: XR chest 1V: Encounter: Initial Comparison: November 27, 2016 Findings: Increasing pulmonary vascular congestion. Persistent hypoinflation. No pneumothorax. No focal consolidation. Heart size and mediastinal contours are stable. Prior CABG. Prior nasogastric tube is been removed. Impression: Hypoinflation with mild pulmonary edema. .
[2016-11-30] MEDS: LIDOCAINE 1% 2ml INJ 10 MG, POTASSIUM CHLORIDE INJ 10 MEQ in NS 100 ML IV SCH ×2 (09:25→10:29)
[2016-11-30] MEDS: INSULIN ASPART 100unit/ml INJECTION SQ PRN ×2 (10:27→20:29)
[2016-11-30] MEDS: SUCRALFATE 1gm/10ml ORAL LIQUID PO SCH ×3 (15:54→20:29)
--- NOTE | 2016-11-30 16:44 | Progress Note ---
Subjective: Mr. Marcelino was up in a chair when seen. He reports that he feels good and has no nausea, abdominal pain, chest pain, heartburn, or reflux symptoms. He denied dyspnea or lightheadedness when he walked and reports that he slept well last night. Nursing confirmed that he had no difficulty last night and there was no agitation or confusion. Nursing reported a short abdi of PVCs this morning. Objective Vital signs: Temperature 97.7 F 11/30/16 15:26 Pulse Rate 69 11/30/16 16:00 Respiratory Rate 16 11/30/16 15:26 Blood Pressure 140/61 H 11/30/16 15:26 Pulse Oximetry 96 11/30/16 15:26 Oxygen Delivery Method Room Air EXAM General-NAD, alert HEENT-conjunctiva clear, sclera anicteric Lungs-respirations nonlabored, good airflow, breath sounds clear Cardiac-regular rhythm, S1-S2, occasional ectopic beats Abd-abdomen soft, nontender, diminished bowel sounds Ext-trace edema bilateral lower extremities Neuro-moving all extremities well Psych-calm, cooperative - Rhythm: Normal Sinus Rhythm Height/Weight/BMI: Height 1.7 m Weight 87 kg Body Mass Index 29.0 Results - Labs CBC & Chem 7: 11/30/16 03:53 11/30/16 03:54 Assessment and Plan (1) Acute GI bleeding Problem details: Esophageal tear, EGD 11/27/16 Current visit: Yes Status: Acute (2) Acute blood loss anemia Current visit: Yes Status: Acute DVT Prophylaxis: SCD's GI Prophylaxis: other (omeprazole, Carafate) Resuscitation Status: Full Code Assessment and Plan: Impression: Acute upper GI bleed Distal esophageal tear with arterial bleeding; EGD 11/27/16 Acute blood loss anemia Coagulopathy due to warfarin Delirium GERD with hx esophageal stricture Type II diabetes Hypertension Hypothyroidism BPH History of colon cancer with metastases, prostate cancer; CEA 1.0 on 11/27 Hypokalemia Ventricular ectopy Plan: Hemoglobin continues to slowly drift downward, continue to monitor. May require additional blockage in several days. Hemodynamically stable. GI bleed required 6 units of PRBCs to date. Currently no indication of ongoing acute blood loss. Platelet count down following active bleed. Does not require intervention. Tolerating full liquid diet with nutritional supplements, dietary consult requested to assist patient with choices and options at discharge. Previously on warfarin due to history PE, reversed with 6 units FFP and 15 mg vitamin K. SCDs for DVT prophylaxis. Warfarin remains on hold, do not anticipate resuming in the immediate future. Sinus rhythm this morning with frequent PVCs -telemetry reviewed, to 3-4 beat salvos NSVT versus artifact (significant background noise on the tracing). Replace potassium which is borderline low today and continue to monitor for arrhythmias. CEA 1.0-hx metastatic colon ca; Dr. Holland has confirmed from office records that patient did not receive chemotherapy after second recurrence. Blood sugars minimally elevated, corrective scale insulin available. Check A1c No nocturnal confusion/delirium reported last night. Continue low-dose Zyprexa a couple more nights. Resume citalopram in addition to levothyroxine and Flomax started yesterday. Continue PT/OT. Plans discussed with Dr. Holland, supplemental history provided by nursing. Laboratory data reviewed. Pathology pending. The patient's fuqfwjxk-dz-lqe-Maria Del Carmen Reyes, phone #[phone]-is his DPOA. Sepsis Assessment - Evaluation Sepsis screening result: No Definite Risk Hospital Course Summary Disclaimer: The visit summary below is not to be considered part of the above Progress Note. Hospital Course: 11/26/16 Admit patient. Inpatient status under the care of Dr. Noble to the ICU for acute GI bleed On admission obtain CBC, BMP, INR, PTT, type and screen. INR this morning was 2.5, INR on admission is 2.76. Will give Vitamin K SQ 5 mg now. Given active melena will initiate transfusion of FFP x 4 units. Hgb last evening was 17. This morning was 14.4 at [facility]. On admission Hgb has decreased to 12.2. Type and screen, ordered. May need to consider blood transfusion. Will recheck HGB at 2200 and will continue serial H/H every 6 hours. Placed on Protonix Drip for GI protection Consultation placed to Dr. Holland for further surgical evaluation and recommendations. 11/27/16 16:10 Continued active GI bleed, BP down briefly last night. Hbg continues to drop, 1 unit overnight and 2nd unint PRBs being given currently. Additional blood being given this afternoon due to ongoing blood loss and dropping hemoglobin. Continue q6hr H/H; convert Protonix to 40 mg bid IV from gtt. INR remained modestly elevated this am after 10 mg Vit. K and 4 units FFP; being reassesed after current unit of blood completed. Additional vitamin K and FFP being given this afternoon. d/w Dr. Holland-EDG when INR permits, <1.5. BUN elevated, c/w GI bleed. CEA 1.0-hx metastatic colon ca. 11/28/16 10:42 Upper GI completed yesterday evening by Dr. Holland identifying active arterial bleed at the distal esophagus. Irregular lesion present associated with bleeding site and some tissue was obtained for pathology. Multiple sites treated with cauterization, epinephrine injection, and clipped to obtain hemostasis. Patient briefly developed narrow complex tachycardia following epinephrine injection requiring administration of esmolol for rate control. Sinus rhythm this morning, BP 119/74-167/71 overnight. Has had 6 units of packed red blood cells today, continue to monitor hemoglobin. 11/29/16 17:43 Hemoglobin drifting down slowly, continue to monitor. Hemodynamically stable. Full liquid diet with improved intake at lunch, will continue with nutritional supplements. GI bleed required 6 units of PRBCs to date. Currently no indication of ongoing blood loss. Platelet count down following active bleed. Does not require intervention. Previously on warfarin due to history PE, reversed with 6 units FFP and 15 mg vitamin K. SCDs for DVT prophylaxis. Warfarin remains on hold, do not anticipate resuming in the immediate future. Sinus rhythm this morning with frequent PVCs and occasional APCs-electrolytes unremarkable. BUN normalizing after elevation prior days c/w GI bleed. CEA 1.0-hx metastatic colon ca; Dr. Holland has confirmed from office records that patient did not receive chemotherapy after second recurrence. Blood sugars minimally elevated, corrective scale insulin available. Increase nocturnal confusion/delirium. Has worsened progressively the last 3 nights consistent with ICU psychosis. Suspect mild underlying dementia is present. Transfer out of the ICU, add low-dose Zyprexa at bedtime short term. 11/30/16 16:53 Hemoglobin continues to slowly drift downward, continue to monitor. May require additional blockage in several days. Hemodynamically stable. GI bleed required 6 units of PRBCs to date. Currently no indication of ongoing acute blood loss. Platelet count down following active bleed. Does not require intervention. Tolerating full liquid diet with nutritional supplements, dietary consult requested to assist patient with choices and options at discharge. Previously on warfarin due to history PE, reversed with 6 units FFP and 15 mg vitamin K. SCDs for DVT prophylaxis. Warfarin remains on hold, do not anticipate resuming in the immediate future. Sinus rhythm this morning with frequent PVCs -telemetry reviewed, to 3-4 beat salvos NSVT versus artifact (significant background noise on the tracing). Replace potassium which is borderline low today and continue to monitor for arrhythmias. CEA 1.0-hx metastatic colon ca; Dr. Holland has confirmed from office records that patient did not receive chemotherapy after second recurrence. Blood sugars minimally elevated, corrective scale insulin available. Check A1c No nocturnal confusion/delirium reported last night. Continue low-dose Zyprexa a couple more nights. Resume citalopram in addition to levothyroxine and Flomax started yesterday.
[2016-11-30] MEDS: OMEPRAZOLE 20 MG CAPSULE PO SCH (17:32)
[2016-11-30] MEDS: OLANZapine 2.5 MG TABLET PO SCH (20:29)
[2016-11-30] MEDS: TAMSULOSIN 0.4 MG CAPSULE PO SCH (20:29)
[2016-11-30] MEDS: SALINE FLUSH 10ml SYRINGE IV PRN (20:33)
[2016-12-01] MEDS: LEVOTHYROXINE 112 MCG TABLET PO SCH (05:39)
[2016-12-01] MEDS: SALINE FLUSH 10ml SYRINGE IV PRN (05:39)
[2016-12-01] MEDS ORDERED: HALOPERIDOL 5 MG/ML INJECTION IVP ONE (06:00)
--- NOTE | 2016-12-01 07:43 | Progress Note ---
DATE OF VISIT 11/29/2016 REASON FOR VISIT Follow GI bleed. SUBJECTIVE Geovany is doing okay. He has had some confusion. He has only been wanting to take water so far. The nurse reports that he has had some smears of stool but no significant bowel movement. The smears were brown and not maroon in color. OBJECTIVE VITAL SIGNS: Temperature 97.4, pulse 63, blood pressure 136/59, respiratory rate 16, oxygen saturation 100% on room air. GENERAL: The patient is awake and alert, in no acute distress. ABDOMEN: Soft, nontender, nondistended. LABORATORY DATA Hemoglobin this morning is 9.0, down from 10.6 yesterday afternoon. IMPRESSION 1. Tear of the distal esophagus of uncertain etiology - pathology pending. 2. Acute blood loss anemia secondary to upper GI bleeding - hemoglobin is drifting down, but I feel this is related to turnover of transfused blood products. 3. Upper GI bleed with arterial hemorrhage - apparently resolved after endoscopic management. PLAN 1. Advance to full liquid diet since the patient appears stable. 2. I think it would be reasonable to transfer the patient to the floor. HERNANDEZ
[2016-12-01] MEDS: CITALOPRAM 20 MG TABLET PO SCH (08:02)
[2016-12-01] MEDS: SUCRALFATE 1gm/10ml ORAL LIQUID PO SCH ×4 (08:02→20:41)
[2016-12-01] MEDS: OMEPRAZOLE 20 MG CAPSULE PO SCH ×2 (08:02→17:18)
--- NOTE | 2016-12-01 08:28 | Progress Note ---
DATE OF VISIT 11/30/2016 REASON FOR VISIT Follow GI bleed. SUBJECTIVE Geovany is doing better. He has been drinking more of his full liquid diet and has enjoyed the Boost nutritional supplements. He does feel weak. His significant other is concerned about him going home since he lives independently. OBJECTIVE VITALS: Temperature 97.2, pulse 70, blood pressure 133/66, respiratory rate 18 , oxygen saturation 99% on room air. GENERAL: The patient is awake and alert. He is seated in a chair in no acute distress. ABDOMEN: Soft, nontender, nondistended. LABORATORY DATA Hemoglobin is down to 8.4 from 9.0 yesterday. IMPRESSION 1. Distal esophageal tear of uncertain etiology - pathology pending. 2. Acute upper GI bleed with arterial hemorrhage - resolved with endoscopic management. 3. Acute blood loss anemia - continued slow drift in hemoglobin but is most likely caused by turnover of blood products. PLAN 1. Add Carafate slurry to try to help healing. 2. I would continue a full liquid diet for 3 weeks after his endoscopy. 3. Nutritional consultation tomorrow to help the patient with counseling regarding a full liquid diet and adequate nutritional intake. 4. I do think it would be reasonable to start more oral medications. MTDD
[2016-12-01] MEDS: POTASSIUM CHLORIDE PREMIX 10 MEQ/100 ML BAG IV SCH ×2 (11:12→13:34)
[2016-12-01] MEDS: NS FLUSH BAG 500ml IV PRN (11:12)
[2016-12-01] MEDS: LIDOCAINE 1% 2ml INJ 10 MG, POTASSIUM CHLORIDE INJ 10 MEQ in NS 100 ML IV SCH ×3 (12:45→15:07)
--- NOTE | 2016-12-01 16:36 | Progress Note ---
Subjective: Mr. Marcelino reports he had a bad night-he was no more specific but nursing notes that he was very confused typesetters printer, became aggressive and restless at which point he dressed and left the room. He received 5 mg of Haldol IM for stabilization but continue to talk about leaving the hospital and set in the emergency room [address] accompanied by staff for a period of time before fatigue set in and he returned to his room with staff assistance. He slept for several hours thereafter. I visited with him in the early afternoon when he awoke at which time he complained of some mild cough without sputum production but denied nausea, vomiting, or abdominal pain. He complains of weakness. The patient subsequently became more confused and began wandering the halls and was again sitting at the ER exit with several staff members in attendance. He was argumentative at the time. Nursing reports only one stool yesterday and is soft brown stool today without evidence of blood. He's had some ventricular ectopy today. Objective Vital signs: Temperature 96.7 F L 12/01/16 14:00 Pulse Rate 75 12/01/16 14:00 Respiratory Rate 20 12/01/16 14:00 Blood Pressure 134/58 12/01/16 14:00 Pulse Oximetry 95 12/01/16 14:00 Oxygen Delivery Method Room Air EXAM General-NAD, confused, requires frequently reorientation to location and illness HEENT-conjugate gaze, sclera anicteric Lungs-respirations nonlabored, good airflow, breath sounds clear Cardiac-irregular rhythm, S1-S2 Abd-soft, nontender, bowel sounds present but diminished Ext-trace edema Neuro-moving all extremities well, good upper extremity strength Psych-labile, pleasant when I examined him initially but belligerant and argumentative 90 minutes later - Height/Weight/BMI: Height 1.7 m Weight 88.5 kg Body Mass Index 29.0 Results - Labs CBC & Chem 7: 12/01/16 03:46 12/01/16 03:46 Labs: A1c 5.6 Assessment and Plan (1) Acute GI bleeding Problem details: Esophageal tear, EGD 11/27/16 Current visit: Yes Status: Acute (2) Acute blood loss anemia Current visit: Yes Status: Acute DVT Prophylaxis: SCD's GI Prophylaxis: other (omeprazole) Resuscitation Status: Full Code Assessment and Plan: Impression: Acute upper GI bleed Distal esophageal tear with arterial bleeding; EGD 11/27/16 Acute blood loss anemia Coagulopathy due to warfarin Delirium GERD with hx esophageal stricture Type II diabetes, A1c 5.6 Hypertension Hypothyroidism BPH History of colon cancer with metastases, prostate cancer; CEA 1.0 on 11/27 Hypokalemia Ventricular ectopy Plan: Hemoglobin stable, hemodynamically stable. GI bleed required 6 units of PRBCs to date. Currently no indication of ongoing acute blood loss. Platelet count down following active bleed but is now normalized. Tolerating full liquid diet with nutritional supplements, dietary consult requested to assist patient with choices and options at discharge. Increasing delirium overnight and today. Low-dose Zyprexa started 2 nights ago corresponding to transfer out of ICU but symptoms have subsequently worsened; Zyprexa increased to 5 mg daily at bedtime. Continue when necessary Haldol, Ativan added for anxiety/agitation. Discussed delirium with the patient's son this afternoon who also spoke with the patient providing significant reassurance for him after which time medication did not appear to be needed. Dr. Guadarrama consulted for further recommendations regarding medication management for delirium. Previously on warfarin due to history PE, reversed with 6 units FFP and 15 mg vitamin K. SCDs for DVT prophylaxis. Warfarin remains on hold, do not anticipate resuming in the immediate future. Sinus rhythm this morning with frequent PVCs-telemetry reviewed by myself. Additional IV potassium replacement today due to persistent hypokalemia. CEA 1.0-hx metastatic colon ca; Dr. Holland has confirmed from office records that patient did not receive chemotherapy after second recurrence. Blood sugars minimally elevated, corrective scale insulin available. A1c normal. Resume citalopram in addition to levothyroxine and Flomax started yesterday. Continue PT/OT. Plans discussed with Dr. Holland, supplemental history provided by nursing. Laboratory data reviewed. Pathology pending. The patient's zfspoawf-[id number]-Maria Del Carmen Reyes, phone #[phone]-is his DPOA. - Time spent with patient greater than 35 minutes Coordination of Care: >50% of visit spent providing counseling/coordination of care Sepsis Assessment - Evaluation Sepsis screening result: No Definite Risk Hospital Course Summary Disclaimer: The visit summary below is not to be considered part of the above Progress Note. Hospital Course: 11/26/16 Admit patient. Inpatient status under the care of Dr. Noble to the ICU for acute GI bleed On admission obtain CBC, BMP, INR, PTT, type and screen. INR this morning was 2.5, INR on admission is 2.76. Will give Vitamin K SQ 5 mg now. Given active melena will initiate transfusion of FFP x 4 units. Hgb last evening was 17. This morning was 14.4 at [facility]. On admission Hgb has decreased to 12.2. Type and screen, ordered. May need to consider blood transfusion. Will recheck HGB at 2200 and will continue serial H/H every 6 hours. Placed on Protonix Drip for GI protection Consultation placed to Dr. Holland for further surgical evaluation and recommendations. 11/27/16 16:10 Continued active GI bleed, BP down briefly last night. Hbg continues to drop, 1 unit overnight and 2nd unint PRBs being given currently. Additional blood being given this afternoon due to ongoing blood loss and dropping hemoglobin. Continue q6hr H/H; convert Protonix to 40 mg bid IV from gtt. INR remained modestly elevated this am after 10 mg Vit. K and 4 units FFP; being reassesed after current unit of blood completed. Additional vitamin K and FFP being given this afternoon. d/w Dr. Holland-EDG when INR permits, <1.5. BUN elevated, c/w GI bleed. CEA 1.0-hx metastatic colon ca. 11/28/16 10:42 Upper GI completed yesterday evening by Dr. Holland identifying active arterial bleed at the distal esophagus. Irregular lesion present associated with bleeding site and some tissue was obtained for pathology. Multiple sites treated with cauterization, epinephrine injection, and clipped to obtain hemostasis. Patient briefly developed narrow complex tachycardia following epinephrine injection requiring administration of esmolol for rate control. Sinus rhythm this morning, BP 119/74-167/71 overnight. Has had 6 units of packed red blood cells today, continue to monitor hemoglobin. 11/29/16 17:43 Hemoglobin drifting down slowly, continue to monitor. Hemodynamically stable. Full liquid diet with improved intake at lunch, will continue with nutritional supplements. GI bleed required 6 units of PRBCs to date. Currently no indication of ongoing blood loss. Platelet count down following active bleed. Does not require intervention. Previously on warfarin due to history PE, reversed with 6 units FFP and 15 mg vitamin K. SCDs for DVT prophylaxis. Warfarin remains on hold, do not anticipate resuming in the immediate future. Sinus rhythm this morning with frequent PVCs and occasional APCs-electrolytes unremarkable. BUN normalizing after elevation prior days c/w GI bleed. CEA 1.0-hx metastatic colon ca; Dr. Holland has confirmed from office records that patient did not receive chemotherapy after second recurrence. Blood sugars minimally elevated, corrective scale insulin available. Increase nocturnal confusion/delirium. Has worsened progressively the last 3 nights consistent with ICU psychosis. Suspect mild underlying dementia is present. Transfer out of the ICU, add low-dose Zyprexa at bedtime short term. 11/30/16 16:53 Hemoglobin continues to slowly drift downward, continue to monitor. May require additional blockage in several days. Hemodynamically stable. GI bleed required 6 units of PRBCs to date. Currently no indication of ongoing acute blood loss. Platelet count down following active bleed. Does not require intervention. Tolerating full liquid diet with nutritional supplements, dietary consult requested to assist patient with choices and options at discharge. Previously on warfarin due to history PE, reversed with 6 units FFP and 15 mg vitamin K. SCDs for DVT prophylaxis. Warfarin remains on hold, do not anticipate resuming in the immediate future. Sinus rhythm this morning with frequent PVCs -telemetry reviewed, to 3-4 beat salvos NSVT versus artifact (significant background noise on the tracing). Replace potassium which is borderline low today and continue to monitor for arrhythmias. CEA 1.0-hx metastatic colon ca; Dr. Holland has confirmed from office records that patient did not receive chemotherapy after second recurrence. Blood sugars minimally elevated, corrective scale insulin available. Check A1c No nocturnal confusion/delirium reported last night. Continue low-dose Zyprexa a couple more nights. Resume citalopram in addition to levothyroxine and Flomax started yesterday. 12/01/16 16:48 Hemoglobin stable, hemodynamically stable. GI bleed required 6 units of PRBCs to date. Currently no indication of ongoing acute blood loss. Platelet count down following active bleed but is now normalized. Tolerating full liquid diet with nutritional supplements, dietary consult requested to assist patient with choices and options at discharge. Increasing delirium overnight and today. Low-dose Zyprexa started 2 nights ago corresponding to transfer out of ICU but symptoms have subsequently worsened; Zyprexa increased to 5 mg daily at bedtime. Continue when necessary Haldol, Ativan added for anxiety/agitation. Discussed delirium with the patient's son this afternoon who also spoke with the patient providing significant reassurance for him after which time medication did not appear to be needed. Dr. Guadarrama consulted for further recommendations regarding medication management for delirium. Previously on warfarin due to history PE, reversed with 6 units FFP and 15 mg vitamin K. SCDs for DVT prophylaxis. Warfarin remains on hold, do not anticipate resuming in the immediate future. Sinus rhythm this morning with frequent PVCs-telemetry reviewed by myself. Additional IV potassium replacement today due to persistent hypokalemia.
[2016-12-01] MEDS: INSULIN ASPART 100unit/ml INJECTION SQ PRN (17:43)
[2016-12-01] MEDS ORDERED: HALOPERIDOL 5 MG/ML INJECTION IVP PRN (19:58)
--- NOTE | 2016-12-01 20:04 | Neuropsychiatric Consult ---
[facility] HPI Date: 12/01/16 Requesting Physician: Marianna Noble Reason for Consultation: Confusion Start Time: 18:00 Stop Time: 18:30 History of Present Illness: HPI: 86 Y/O CM initially admitted with GI bleed. Nursing reprots this AM and later today around 1500 the pt became confused and agitated and was attempting to leave the hospital. Nursing reports Zyprexa has been someone helpful and Haldol was also helpful. On face to face the pt is pleasant but slightly confused. He is oriented x 2. Believes he is in [place]. He states he does remember being confused earlier in the day and states talking to his family was helpful. He is deies any S/I or psychosis. PSYH ROS: Nursing reports some confusion and agitation at times. Someone worse at night. Pt agrees he is confused at times. Pt reports his mood is stable. He denies jeff, anxiety, or psychosis. PAST PSYCH: Pt states he has not seen a psychiatrist in the past. He has been living on his own and states he has been continuing to drive and care for himself. [facility] Patient Stated Medical History Cerebrovascular Accident No Paralysis No Seizures No Syncope No Hearing Loss Yes Angina Yes Cardiac Arrhythmia Yes Coronary Artery Disease Yes: CABG Hypertension Yes Myocardial Infarction Yes Asthma No Bronchitis No Chronic Obstructive Pulmonary No Disease (COPD) Pneumonia No Pulmonary Edema No Pulmonary Embolism No Sleep Apnea No Tuberculosis No Other Respiratory No Diabetes Mellitus Type 1 No Diabetes Mellitus Type 2 No Gastroesophageal Reflux Yes Disease Other PROSTATE CA Osteoarthritis No Other Musculoskeletal No Depression No Surgical History: Transverse partial colectomy-2008 (Dr. Ortega). EGD with dilatation-2010 (Dr. Ortega ). Cholecystectomy-Dr. Del Castillo. Quadruple bypass- 1994. TURP- Dr Michael. Back surgery, Dr. Frank. Left shoulder replacement- 2008 (Dr. Garcia). Right shoulder replacement-2010 (Dr. Garcia). Appendectomy- 1962 - Social History Current residence: Apartment/Private Home Review of Systems - Psychiatric Psychiatric: Present: behavioral changes, difficulty concentrating Mental Status Exam Vitals: Last Vital Signs Temp 97.1 F 12/01/16 16:58 Pulse 85 12/01/16 16:58 Resp 30 H 12/01/16 16:58 BP 142/76 H 12/01/16 16:58 Pulse Ox 97 12/01/16 16:58 Height: 1.7 m Weight: 88.5 kg - Mental Status Exam Muscle Strength/Tone: Normal Dressing: Casual Grooming: Good Attitude: Cooperative Motor Activity: Retardation Eye Contact: Fair Speech: Slowed Volume: Soft Rhythm: Appropriate Rhythm Orientation: Oriented to person, Oriented to time Mood: Neutral Affect: Relaxed Rate of Thoughts: Delayed Thought Organization: Tangential Associations: Flight of Ideas Abstract Reasoning: Poor abstract reasoning Thought Content: Normal Perception/Psychotic: Hx psychosis, not current Language: Naming Impaired Fund of Knowledge: Poor fund of knowledge Memory: Poor-immediate, Poor-recent Suicidal Ideation: None Homicidal Ideation: None Insight: Poor Judgement: Poor Impulse Control: Poor - Laboratory Result Diagrams: 12/01/16 03:46 12/01/16 03:46 Laboratory Results - last 24 hr 11/30/16 12/01/16 12/01/16 20:03 03:46 03:46 WBC 11.2 H RBC 3.41 L Hgb 10.2 L D Hct 31.1 L D MCV 91.2 MCH 29.9 MCHC 32.8 RDW Std Deviation 45.8 Plt Count 146 D MPV 12.1 Immature Gran % (Auto) 2.2 H Neut % (Auto) 68.0 H Lymph % (Auto) 15.8 L Buchanan % (Auto) 10.0 H Eos % (Auto) 3.8 Baso % (Auto) 0.2 Neut # 7.6 Lymph # 1.8 Buchanan # 1.1 H Eos # 0.4 Baso # 0.0 Abs Immat Gran (auto) 0.25 H Turbidity < 20 Sodium 141 Potassium 3.0 L Chloride 105 Carbon Dioxide 27 Anion Gap 9 BUN 16.0 Creatinine 0.9 GFR Calculation 80 BUN/Creatinine Ratio 18 Glucose 130 H Glucometer 224 Hemoglobin A1c 5.6 L Calculated Osmolality 274 Calcium 8.9 D Magnesium 2.0 Icterus Index < 2 Specimen Hemolysis < 15 12/01/16 12/01/16 12/01/16 06:12 09:57 16:24 WBC RBC Hgb Hct MCV MCH MCHC RDW Std Deviation Plt Count MPV Immature Gran % (Auto) Neut % (Auto) Lymph % (Auto) Buchanan % (Auto) Eos % (Auto) Baso % (Auto) Neut # Lymph # Buchanan # Eos # Baso # Abs Immat Gran (auto) Turbidity Sodium Potassium Chloride Carbon Dioxide Anion Gap BUN Creatinine GFR Calculation BUN/Creatinine Ratio Glucose Glucometer 166 176 215 Hemoglobin A1c Calculated Osmolality Calcium Magnesium Icterus Index Specimen Hemolysis Assessment and Plan (1) Delirium due to multiple etiologies, acute, hyperactive Current visit: Yes Status: Acute Continue medical management. Agree with Zyprexa 5mg at HS as nursing feels it has been helpful. Will decrease Haldol to 1mg IV Q 6 PRN agitation. Agree with Ativan PRN also but would recommend using Haldol first as Ativan could make agitation worse. Will monitor QT with use of Zyprexa and PRN Haldol
[2016-12-01] MEDS: OLANZapine 5 MG TABLET PO SCH (20:41)
[2016-12-01] MEDS: TAMSULOSIN 0.4 MG CAPSULE PO SCH (20:41)
[2016-12-02] MEDS: OMEPRAZOLE 20 MG CAPSULE PO SCH ×2 (08:03→16:45)
[2016-12-02] MEDS: CITALOPRAM 20 MG TABLET PO SCH (08:03)
[2016-12-02] MEDS: LEVOTHYROXINE 112 MCG TABLET PO SCH (08:03)
[2016-12-02] MEDS: SUCRALFATE 1gm/10ml ORAL LIQUID PO SCH ×4 (08:03→21:43)
--- NOTE | 2016-12-02 09:16 | Progress Note ---
DATE OF VISIT 12/01/2016 REASON FOR VISIT Follow GI bleed. SUBJECTIVE Geovany has been very confused but he denies any abdominal pain. He is wanting to leave the hospital. He did have a moderate black stool today, but hemoglobin has increased up to 10.2. The hospitalist service is working on dismissal plans. OBJECTIVE VITAL SIGNS: Temperature 96.7, pulse 75, blood pressure 134/58, respiratory rate 20, oxygen saturation 95% on room air. GENERAL: The patient is awake and alert. He is in no acute distress. He is dressed and sitting in bed. ABDOMEN: Soft, nontender, nondistended. LABORATORY DATA Hemoglobin 10.2 this morning. ASSESSMENT 1. Distal esophageal tear of uncertain etiology. Pathology revealed no definite dysplastic change or malignant cells. This appears most consistent with an acute tear of the esophagus, but etiology is still unclear since the patient had no reported severe coughing or retching. 2. Acute upper GI bleed with arterial hemorrhage - resolved with endoscopic management. 3. Acute blood loss anemia - hemoglobin improved this morning. PLAN 1. Continue medical management with PPI and Carafate. 2. Continue full liquid diet for another 2-1/2 weeks. 3. Nutritional supplements to help with maintenance of adequate nutritional intake. 4. Since hemoglobin has increased today, I think transfer from the acute hospital would be reasonable. 5. I will sign off of Geovany's case but will be available if any further help as needed. HERNANDEZ
[2016-12-02] MEDS: LIDOCAINE 1% 2ml INJ 10 MG, POTASSIUM CHLORIDE INJ 10 MEQ in NS 100 ML IV SCH ×4 (10:11→13:43)
[2016-12-02] MEDS: NS FLUSH BAG 500ml IV PRN (10:16)
[2016-12-02] MEDS: INSULIN ASPART 100unit/ml INJECTION SQ PRN ×2 (10:25→14:59)
--- NOTE | 2016-12-02 12:01 | Progress Note ---
Subjective: Mr. Marcelino slept well overnight and reports feeling much better today. He is ambulated with PT and is becoming more independent progressively. He describes minor exertional dyspnea but no chest pain or lightheadedness and he denied dyspnea at rest. He continues to deny nausea, reflux, heartburn, or abdominal pain. There's been no further rectal bleeding and stools are brown per nursing report. His appetite is good but he did not remember dietary restrictions discussed yesterday. Objective Vital signs: Temperature 97.2 F 12/02/16 11:21 Pulse Rate 70 12/02/16 11:27 Respiratory Rate 16 12/02/16 11:27 Blood Pressure 150/77 H 12/02/16 11:27 Pulse Oximetry 99 12/02/16 11:27 Oxygen Delivery Method Room Air EXAM General-NAD, alert, oriented 3 HEENT-conjunctiva clear, EOMI, anicteric, oropharynx clear Lungs-respirations nonlabored, good airflow, breath sounds slightly coarse at the bases bilaterally Cardiac-regular rhythm, S1-S2 Abd-soft, nontender, bowel sounds present Ext-trace edema bilateral lower extremities; midline left upper extremity- insertion site okay Neuro-MAEW Psych-calm, cooperative, pleasant - Height/Weight/BMI: Height 1.7 m Weight 86.5 kg Body Mass Index 29.0 Results - Labs CBC & Chem 7: 12/02/16 04:48 12/02/16 04:48 Labs: INR 1.16 Magnesium 2.0, phosphorus 3.4, albumin 3.1 Accu-Cheks [phone] yesterday; [phone] today - ECG Data Tracing #1 I reviewed this ECG and interpreted as documented below: (telemetry reviewed- sinus rhythm with frequent PVCs and occasional couplets; one short run of SVT) Assessment and Plan (1) Acute GI bleeding Problem details: Esophageal tear, EGD 11/27/16 Current visit: Yes Status: Acute (2) Acute blood loss anemia Current visit: Yes Status: Acute DVT Prophylaxis: SCD's GI Prophylaxis: other (omeprazole) Resuscitation Status: Full Code Assessment and Plan: Impression: Acute upper GI bleed Distal esophageal tear with arterial bleeding; EGD 11/27/16 Acute blood loss anemia Coagulopathy due to warfarin Delirium, acute GERD with hx esophageal stricture Type II diabetes, A1c 5.6 Hypertension Hypothyroidism BPH History of colon cancer with metastases, prostate cancer; CEA 1.0 on 11/27 Hypokalemia Ventricular ectopy Plan: Hemoglobin stable, hemodynamically stable. GI bleed required 6 units of PRBCs to date. No indication of ongoing acute blood loss. Probable Carissa-Barekr tear-patient describes forceful vomiting prior to hospitalization. Pathology without evidence of malignancy. Transient drop in platelet count associated with blood loss, normalized Tolerating full liquid diet with nutritional supplements, dietary consult requested to assist patient with choices and options at discharge. Reviewed dietary restrictions and discussed recommendation that patient limit to liquid diet for 3 weeks. Patient slept well overnight per nursing and has been calm and cooperative this morning. Continue Zyprexa 5 mg at bedtime temporarily with low-dose Haldol or lorazepam if needed. Previously on warfarin due to history PE, reversed with 6 units FFP and 15 mg vitamin K. SCDs for DVT prophylaxis. Warfarin remains on hold, do not anticipate resuming in the immediate future. Sinus rhythm this morning with frequent PVCs-telemetry reviewed by myself. Additional IV potassium replacement today due to persistent hypokalemia. CEA 1.0-hx metastatic colon ca; Dr. Holland has confirmed from office records that patient did not receive chemotherapy after second recurrence. Sporadic hyperglycemia on full liquid diet, corrective scale insulin available. A1c normal. Resume citalopram in addition to levothyroxine and Flomax started yesterday. Continue PT/OT. Approaching discharge, unlikely to require IRU at this point. Discussed with nursing, discussed with Dr. Holland; pathology reviewed, laboratory data reviewed, telemetry reviewed by myself. The patient's [id number]-Maria Del Carmen Reyes, phone #[phone]-is his DPOA. Sepsis Assessment - Evaluation Sepsis screening result: No Definite Risk Hospital Course Summary Disclaimer: The visit summary below is not to be considered part of the above Progress Note. Hospital Course: 11/26/16 Admit patient. Inpatient status under the care of Dr. Noble to the ICU for acute GI bleed On admission obtain CBC, BMP, INR, PTT, type and screen. INR this morning was 2.5, INR on admission is 2.76. Will give Vitamin K SQ 5 mg now. Given active melena will initiate transfusion of FFP x 4 units. Hgb last evening was 17. This morning was 14.4 at [facility]. On admission Hgb has decreased to 12.2. Type and screen, ordered. May need to consider blood transfusion. Will recheck HGB at 2200 and will continue serial H/H every 6 hours. Placed on Protonix Drip for GI protection Consultation placed to Dr. Holland for further surgical evaluation and recommendations. 11/27/16 16:10 Continued active GI bleed, BP down briefly last night. Hbg continues to drop, 1 unit overnight and 2nd unint PRBs being given currently. Additional blood being given this afternoon due to ongoing blood loss and dropping hemoglobin. Continue q6hr H/H; convert Protonix to 40 mg bid IV from gtt. INR remained modestly elevated this am after 10 mg Vit. K and 4 units FFP; being reassesed after current unit of blood completed. Additional vitamin K and FFP being given this afternoon. d/w Dr. Holland-EDG when INR permits, <1.5. BUN elevated, c/w GI bleed. CEA 1.0-hx metastatic colon ca. 11/28/16 10:42 Upper GI completed yesterday evening by Dr. Holland identifying active arterial bleed at the distal esophagus. Irregular lesion present associated with bleeding site and some tissue was obtained for pathology. Multiple sites treated with cauterization, epinephrine injection, and clipped to obtain hemostasis. Patient briefly developed narrow complex tachycardia following epinephrine injection requiring administration of esmolol for rate control. Sinus rhythm this morning, BP 119/74-167/71 overnight. Has had 6 units of packed red blood cells today, continue to monitor hemoglobin. 11/29/16 17:43 Hemoglobin drifting down slowly, continue to monitor. Hemodynamically stable. Full liquid diet with improved intake at lunch, will continue with nutritional supplements. GI bleed required 6 units of PRBCs to date. Currently no indication of ongoing blood loss. Platelet count down following active bleed. Does not require intervention. Previously on warfarin due to history PE, reversed with 6 units FFP and 15 mg vitamin K. SCDs for DVT prophylaxis. Warfarin remains on hold, do not anticipate resuming in the immediate future. Sinus rhythm this morning with frequent PVCs and occasional APCs-electrolytes unremarkable. BUN normalizing after elevation prior days c/w GI bleed. CEA 1.0-hx metastatic colon ca; Dr. Holland has confirmed from office records that patient did not receive chemotherapy after second recurrence. Blood sugars minimally elevated, corrective scale insulin available. Increase nocturnal confusion/delirium. Has worsened progressively the last 3 nights consistent with ICU psychosis. Suspect mild underlying dementia is present. Transfer out of the ICU, add low-dose Zyprexa at bedtime short term. 11/30/16 16:53 Hemoglobin continues to slowly drift downward, continue to monitor. May require additional blockage in several days. Hemodynamically stable. GI bleed required 6 units of PRBCs to date. Currently no indication of ongoing acute blood loss. Platelet count down following active bleed. Does not require intervention. Tolerating full liquid diet with nutritional supplements, dietary consult requested to assist patient with choices and options at discharge. Previously on warfarin due to history PE, reversed with 6 units FFP and 15 mg vitamin K. SCDs for DVT prophylaxis. Warfarin remains on hold, do not anticipate resuming in the immediate future. Sinus rhythm this morning with frequent PVCs -telemetry reviewed, to 3-4 beat salvos NSVT versus artifact (significant background noise on the tracing). Replace potassium which is borderline low today and continue to monitor for arrhythmias. CEA 1.0-hx metastatic colon ca; Dr. Holland has confirmed from office records that patient did not receive chemotherapy after second recurrence. Blood sugars minimally elevated, corrective scale insulin available. Check A1c No nocturnal confusion/delirium reported last night. Continue low-dose Zyprexa a couple more nights. Resume citalopram in addition to levothyroxine and Flomax started yesterday. 12/01/16 16:48 Hemoglobin stable, hemodynamically stable. GI bleed required 6 units of PRBCs to date. Currently no indication of ongoing acute blood loss. Platelet count down following active bleed but is now normalized. Tolerating full liquid diet with nutritional supplements, dietary consult requested to assist patient with choices and options at discharge. Increasing delirium overnight and today. Low-dose Zyprexa started 2 nights ago corresponding to transfer out of ICU but symptoms have subsequently worsened; Zyprexa increased to 5 mg daily at bedtime. Continue when necessary Haldol, Ativan added for anxiety/agitation. Discussed delirium with the patient's son this afternoon who also spoke with the patient providing significant reassurance for him after which time medication did not appear to be needed. Dr. Guadarrama consulted for further recommendations regarding medication management for delirium. Previously on warfarin due to history PE, reversed with 6 units FFP and 15 mg vitamin K. SCDs for DVT prophylaxis. Warfarin remains on hold, do not anticipate resuming in the immediate future. Sinus rhythm this morning with frequent PVCs-telemetry reviewed by myself. Additional IV potassium replacement today due to persistent hypokalemia. 12/02/16 12:10 Hemoglobin stable, hemodynamically stable. GI bleed required 6 units of PRBCs to date. No indication of ongoing acute blood loss. Probable Carissa-Barker tear-patient describes forceful vomiting prior to hospitalization. Pathology without evidence of malignancy. Transient drop in platelet count associated with blood loss, normalized Tolerating full liquid diet with nutritional supplements, dietary consult requested to assist patient with choices and options at discharge. Reviewed dietary restrictions and discussed recommendation that patient limit to liquid diet for 3 weeks. Patient slept well overnight per nursing and has been calm and cooperative this morning. Continue Zyprexa 5 mg at bedtime temporarily with low-dose Haldol or lorazepam if needed. Previously on warfarin due to history PE, reversed with 6 units FFP and 15 mg vitamin K. SCDs for DVT prophylaxis. Warfarin remains on hold, do not anticipate resuming in the immediate future. Sinus rhythm this morning with frequent PVCs-telemetry reviewed by myself. Additional IV potassium replacement today due to persistent hypokalemia. CEA 1.0-hx metastatic colon ca; Dr. Holland has confirmed from office records that patient did not receive chemotherapy after second recurrence. Sporadic hyperglycemia on full liquid diet, corrective scale insulin available. A1c normal. Resume citalopram in addition to levothyroxine and Flomax started yesterday.
[2016-12-02] MEDS: TAMSULOSIN 0.4 MG CAPSULE PO SCH (21:43)
[2016-12-02] MEDS: OLANZapine 5 MG TABLET PO SCH (21:44)
[2016-12-03] MEDS: SUCRALFATE 1gm/10ml ORAL LIQUID PO SCH ×3 (05:47→17:41)
[2016-12-03] MEDS: LEVOTHYROXINE 112 MCG TABLET PO SCH (05:48)
[2016-12-03] MEDS: OMEPRAZOLE 20 MG CAPSULE PO SCH ×2 (05:48→17:41)
[2016-12-03] MEDS: CITALOPRAM 20 MG TABLET PO SCH (08:24)
[2016-12-03 08:53] VITALS: O2SAT 98
--- NOTE | 2016-12-03 15:45 | Discharge Instructions ---
Discharge Plan - Med Rec/Dispo Referrals/Follow Up: Esequiel Calloway DO [Family Provider] - (Please schedule follow up apt for ThursdayDec 05. Check CBC at that time. ) Anatoly Holland MD [Physician] - 2 Months Prescriptions: New Acetaminophen [Tylenol] 650 mg PO QID PRN tablet PRN Reason: Discomfort Omeprazole [Prilosec] 1 cap PO ACBID #30 cap Sucralfate [Carafate] 1 gm PO ACHS #120 tab Continue Levothyroxine Tab [Synthroid] 112 mcg PO ACB Citalopram [Celexa] 1 tab PO DAILY Tamsulosin [Flomax] 0.4 mg PO HS Discontinued Lisinopril [Prinivil] 5 mg PO DAILY Aspirin [Aspirin EC] 81 mg PO DAILY Nitroglycerin [Nitrostat] 0.4 mg SL PRN PRN PRN Reason: Chest Pain Colchicine [Colcrys] 0.6 mg PO PRN PRN PRN Reason: Gout Pain Warfarin Sodium [Coumadin] 5 mg PO DAILY Omeprazole 20 mg PO DAILY #0 HydroCHLOROthiazide [Microzide] 1 cap PO WB Potassium Chloride [Micro-K] 10 meq PO WB Discharge Instructions/Outpatient Orders: Final Provider Discharge Instructions Location: Determined By Patient - Disposition [address] [place] [address] Service
--- NOTE | 2016-12-03 16:53 | Discharge Summary ---
Discharge Information Date of admission: 11/26/16 14:45 Attending Physician: Marianna Noble MD Primary care physician: Esequiel Calloway DO Consults: 11/26/16 15:46 Physician Consult [CONS] Routine Consulting Provider: Anatoly Holland Reason For Exam: GI Bleeding 12/01/16 16:45 Physician Consult [CONS] Routine Consulting Provider: Oc Guadarrama Reason For Exam: delirium, probable underlying dementia - Discharge Diagnosis Discharge Diagnosis: Upper GI bleed most likely secondary to Carissa-Barker tear of distal esophagus Acute blood loss anemia requiring 6 units of packed red blood cells Coagulopathy requiring 5 units of fresh frozen plasma Delirium/encephalopathy-resolved GERD with history of esophageal stricture Type 2 diabetes with A1c of 5.6 history of colon cancer with metastasis - Procedures Procedures: DATE OF OPERATION 11/27/2016 SURGEON Anatoly Holland MD BOBBIN MARKER Dr. Gonzalo Palacios PREOPERATIVE DIAGNOSES 1. Acute GI bleed. 2. Gastroesophageal reflux disease. 3. Acute blood loss anemia. POSTOPERATIVE DIAGNOSES 1. Tear of the distal esophagus of uncertain etiology with active arterial hemorrhage. 2. Upper GI bleed secondary to esophageal hemorrhage. 3. Gastroesophageal reflux disease. 4. Acute blood loss anemia. PROCEDURE 1. Esophagogastroduodenoscopy with biopsy of distal esophagus. 2. Endoscopic epinephrine injection at the distal esophagus for control of hemorrhage. 3. Bipolar Gold Probe cauterization at the distal esophagus for control of hemorrhage. 6. Endoscopic clip placement at the distal esophagus x 3 for control of hemorrhage. - Laboratory Labs: 12/03/16 03:52 12/03/16 03:52 Hemoglobin was 12.2 on 11/26/2016 and felt to 5.7 on 11/27/2016. Hemoglobin at discharge is 8.8 Platelet count fell 79 and is 185 on discharge INR was 2.76 on admission and 1.12 at discharge - Radiology Radiology: Chest x-ray on 11/26/2016 showed inability to see the NG tube. Hypoinflation and mild pulmonary edema Chest x-ray 11/27/2016 showed improved pulmonary vascular congestion. NG tube is partially visualized Chest x-ray 11/27/2016 showed hypoinflation with mild pulmonary edema History of Present Illness HPI: Chester is a pleasant 86yr old male with acute GI Bleeding. He was seen last evening in [facility] ER and was thought to be dehydrated. His Hgb was 17 at that time and he was discharged home. This morning he got up use the restroom noted to have "diarrhea". He felt lightheaded and weak and ambulated outside in attempt to go to his car to present to the doctor, however, he "slumped down and fell ". This was witnessed by his neighbor, and he asked his neighbor to call EMS for transportation to the emergency room. He was evaluated again acutely at [facility] emergency room this morning. Laboratory studies were repeated. At this time, hemoglobin was found to be down at 14.4 with a white count of 25.7, hematocrit 42.4, platelet count 272, 81 segs with 6% bandemia. INR at that time his 2.88 as patient is chronically on warfarin. Needing these in 1.6, to prone and was negative, lipase 81, amylase 36. It was 3 panel is reviewed. Sodium is 138, potassium 4.3, BUN 44, creatinine 1.4. Sedimentation rate was found to be 7. Twelve lead EKG was obtained showing sinus rhythm with PVCs without other acute changes. A CT scan of the abdomen was obtained given his leukocytosis with diarrhea. He was found to have a distended abdomen with debris/food raising concern for gastric outlet obstruction or gastroparesis. He is also noted to have diverticulosis of the colon. An NG tube tube was placed to LIS. Patient was then assisted up to use the bathroom at which time he had a maroon stool. Given the concern for acute GI bleeding, accompanied with his chronic comorbidities and chronic anticoagulation, [facility] services were contacted and accepted patient for direct admission to the ICU as an inpatient under the care of Dr. Noble. It is expected that his stay will be greater than 2 overnights. He shouldn't on arrival to [facility]. He has ongoing drainage from NG tube that is melena in color. He also has a melena stool during examination. He does complain of feeling somewhat short of breath. He denies having any pain in his chest or stomach. Reports he has had loose stools diarrhea and has soreness to his rectum. Patient remembers the event this morning in which he "fell, stumbled". He denies hitting his head or having loss of consciousness. Did discuss events records and he does verbalize. He wishes to be a full code Objective Vital signs: Temperature 96.5 F L 12/03/16 07:33 Pulse Rate 73 12/03/16 08:00 Respiratory Rate 18 12/03/16 07:33 Blood Pressure 147/71 H 12/03/16 07:33 Pulse Oximetry 98 12/03/16 07:33 Rhythm: Normal Sinus Rhythm Height/Weight/BMI: Height 1.7 m Weight 82.8 kg Body Mass Index 29.0 Hospital Course This is a general summary of the patient's hospital course. For more details refer to the complete medical record. Hospital course: 11/26/16 Admit patient. Inpatient status under the care of Dr. Noble to the ICU for acute GI bleed On admission obtain CBC, BMP, INR, PTT, type and screen. INR this morning was 2.5, INR on admission is 2.76. Will give Vitamin K SQ 5 mg now. Given active melena will initiate transfusion of FFP x 4 units. Hgb last evening was 17. This morning was 14.4 at [facility]. On admission Hgb has decreased to 12.2. Type and screen, ordered. May need to consider blood transfusion. Will recheck HGB at 2200 and will continue serial H/H every 6 hours. Placed on Protonix Drip for GI protection Consultation placed to Dr. Holland for further surgical evaluation and recommendations. 11/27/16 16:10 Continued active GI bleed, BP down briefly last night. Hbg continues to drop, 1 unit overnight and 2nd unint PRBs being given currently. Additional blood being given this afternoon due to ongoing blood loss and dropping hemoglobin. Continue q6hr H/H; convert Protonix to 40 mg bid IV from gtt. INR remained modestly elevated this am after 10 mg Vit. K and 4 units FFP; being reassesed after current unit of blood completed. Additional vitamin K and FFP being given this afternoon. d/w Dr. Holland-EDG when INR permits, <1.5. BUN elevated, c/w GI bleed. CEA 1.0-hx metastatic colon ca. 11/28/16 10:42 Upper GI completed yesterday evening by Dr. Holland identifying active arterial bleed at the distal esophagus. Irregular lesion present associated with bleeding site and some tissue was obtained for pathology. Multiple sites treated with cauterization, epinephrine injection, and clipped to obtain hemostasis. Patient briefly developed narrow complex tachycardia following epinephrine injection requiring administration of esmolol for rate control. Sinus rhythm this morning, BP 119/74-167/71 overnight. Has had 6 units of packed red blood cells today, continue to monitor hemoglobin. 11/29/16 17:43 Hemoglobin drifting down slowly, continue to monitor. Hemodynamically stable. Full liquid diet with improved intake at lunch, will continue with nutritional supplements. GI bleed required 6 units of PRBCs to date. Currently no indication of ongoing blood loss. Platelet count down following active bleed. Does not require intervention. Previously on warfarin due to history PE, reversed with 6 units FFP and 15 mg vitamin K. SCDs for DVT prophylaxis. Warfarin remains on hold, do not anticipate resuming in the immediate future. Sinus rhythm this morning with frequent PVCs and occasional APCs-electrolytes unremarkable. BUN normalizing after elevation prior days c/w GI bleed. CEA 1.0-hx metastatic colon ca; Dr. Holland has confirmed from office records that patient did not receive chemotherapy after second recurrence. Blood sugars minimally elevated, corrective scale insulin available. Increase nocturnal confusion/delirium. Has worsened progressively the last 3 nights consistent with ICU psychosis. Suspect mild underlying dementia is present. Transfer out of the ICU, add low-dose Zyprexa at bedtime short term. 11/30/16 16:53 Hemoglobin continues to slowly drift downward, continue to monitor. May require additional blockage in several days. Hemodynamically stable. GI bleed required 6 units of PRBCs to date. Currently no indication of ongoing acute blood loss. Platelet count down following active bleed. Does not require intervention. Tolerating full liquid diet with nutritional supplements, dietary consult requested to assist patient with choices and options at discharge. Previously on warfarin due to history PE, reversed with 6 units FFP and 15 mg vitamin K. SCDs for DVT prophylaxis. Warfarin remains on hold, do not anticipate resuming in the immediate future. Sinus rhythm this morning with frequent PVCs -telemetry reviewed, to 3-4 beat salvos NSVT versus artifact (significant background noise on the tracing). Replace potassium which is borderline low today and continue to monitor for arrhythmias. CEA 1.0-hx metastatic colon ca; Dr. Holland has confirmed from office records that patient did not receive chemotherapy after second recurrence. Blood sugars minimally elevated, corrective scale insulin available. Check A1c No nocturnal confusion/delirium reported last night. Continue low-dose Zyprexa a couple more nights. Resume citalopram in addition to levothyroxine and Flomax started yesterday. 12/01/16 16:48 Hemoglobin stable, hemodynamically stable. GI bleed required 6 units of PRBCs to date. Currently no indication of ongoing acute blood loss. Platelet count down following active bleed but is now normalized. Tolerating full liquid diet with nutritional supplements, dietary consult requested to assist patient with choices and options at discharge. Increasing delirium overnight and today. Low-dose Zyprexa started 2 nights ago corresponding to transfer out of ICU but symptoms have subsequently worsened; Zyprexa increased to 5 mg daily at bedtime. Continue when necessary Haldol, Ativan added for anxiety/agitation. Discussed delirium with the patient's son this afternoon who also spoke with the patient providing significant reassurance for him after which time medication did not appear to be needed. Dr. Guadarrama consulted for further recommendations regarding medication management for delirium. Previously on warfarin due to history PE, reversed with 6 units FFP and 15 mg vitamin K. SCDs for DVT prophylaxis. Warfarin remains on hold, do not anticipate resuming in the immediate future. Sinus rhythm this morning with frequent PVCs-telemetry reviewed by myself. Additional IV potassium replacement today due to persistent hypokalemia. 12/02/16 12:10 Hemoglobin stable, hemodynamically stable. GI bleed required 6 units of PRBCs to date. No indication of ongoing acute blood loss. Probable Carissa-Barker tear-patient describes forceful vomiting prior to hospitalization. Pathology without evidence of malignancy. Transient drop in platelet count associated with blood loss, normalized Tolerating full liquid diet with nutritional supplements, dietary consult requested to assist patient with choices and options at discharge. Reviewed dietary restrictions and discussed recommendation that patient limit to liquid diet for 3 weeks. Patient slept well overnight per nursing and has been calm and cooperative this morning. Continue Zyprexa 5 mg at bedtime temporarily with low-dose Haldol or lorazepam if needed. Previously on warfarin due to history PE, reversed with 6 units FFP and 15 mg vitamin K. SCDs for DVT prophylaxis. Warfarin remains on hold, do not anticipate resuming in the immediate future. Sinus rhythm this morning with frequent PVCs-telemetry reviewed by myself. Additional IV potassium replacement today due to persistent hypokalemia. CEA 1.0-hx metastatic colon ca; Dr. Holland has confirmed from office records that patient did not receive chemotherapy after second recurrence. Sporadic hyperglycemia on full liquid diet, corrective scale insulin available. A1c normal. Resume citalopram in addition to levothyroxine and Flomax started yesterday. 12/03/2016-Patel The patient has done quite well. Hemoglobin since last transfusion on the evening of 11/27/2016 has ranged from 8.4-11.8. Today it is 8.8. He has been up walking without any lightheadedness, chest pain or dyspnea. Stools are not as dark as they had been. Regarding the patient's upper GI bleed that is thought to be secondary to a Carissa-Barker tear, the patient will need a full liquid diet for the next 2-1/2 weeks. The dietitian has talked to him and his significant other about supplement shakes and yogurt that he can eat during this time. He will need to be on omeprazole 20 mg twice daily and Carafate 1 g before meals meals and daily at bedtime for the next [address] Holland with like to see him back in 2 months time and at that time he will consider whether or not to repeat an EGD. The patient is tolerating full liquid diet without any difficulties. Bowels are moving well and he is urinating well. He did have some delirium but this has resolved. He did have Zyprexa 5 mg at at bedtime for the past 2 nights and today he is back to normal. At this time the patient appears stable for dismissal to home. He will have home health. His significant other will stay with him this evening to make sure he is doing well. Will follow-up with Dr. Calloway in 2 days and will get a CBC and basic metabolic profile at that time. The patient is to remain off of warfarin. He is to avoid aspirin and all other NSAIDs. He can take Tylenol as needed for pain. On the day of discharge the patient is alert and oriented and in no acute distress. Chest is clear to auscultation. Cardiac vascular reveals a regular rate and rhythm. Abdomen is soft and nontender. Extremities reveal trace edema. Dismiss to home today with home health in stable condition. He will use a walker for ambulation. He is not to drive until cleared by his primary care physician. Greater than 35 minutes of time was spent seeing and evaluating the patient in determining discharge plan. I will notify Dr. Calloway dismissal and discharge plans. Time spent with patient: greater than 35 minutes Discharge Plan - Med Rec/Dispo Referrals/Follow Up: Esequiel Calloway DO [Family Provider] - (Follow up apt for ThursdayDec 05 at 1:30 pm. Check CBC at that time. ) Anatoly Holland MD [Physician] - 2 Months [facility] Instructions: Gastrointestinal Bleeding (DC) Prescriptions: New Acetaminophen [Tylenol] 650 mg PO QID PRN tablet PRN Reason: Discomfort Omeprazole [Prilosec] 1 cap PO ACBID #30 cap Sucralfate [Carafate] 1 gm PO ACHS #120 tab Continue Levothyroxine Tab [Synthroid] 112 mcg PO ACB Citalopram [Celexa] 1 tab PO DAILY Tamsulosin [Flomax] 0.4 mg PO HS Discontinued Lisinopril [Prinivil] 5 mg PO DAILY Aspirin [Aspirin EC] 81 mg PO DAILY Nitroglycerin [Nitrostat] 0.4 mg SL PRN PRN PRN Reason: Chest Pain Colchicine [Colcrys] 0.6 mg PO PRN PRN PRN Reason: Gout Pain Warfarin Sodium [Coumadin] 5 mg PO DAILY Omeprazole 20 mg PO DAILY #0 HydroCHLOROthiazide [Microzide] 1 cap PO WB Potassium Chloride [Micro-K] 10 meq PO WB Discharge Instructions/Outpatient Orders: Final Provider Discharge Instructions Location: Determined By Patient - Disposition [address] [place] [address]
[2016-12-03 16:55] VITALS: BP 165/73; PULSE 70; RESP 20; TEMP 97.3
== END 2016-12-03 19:40 | disposition home health service (06) | DRG 369 ==
LOC: CCU 14:45 → SRG 14:46 → CCU 14:47 → SRG 11-29 18:51
PROVIDERS: ADMIT Internal Medicine; ATTEND Internal Medicine
PROC: END.EGD (2016-11-27 20:45)